=== PATIENT | female | born 1945 | race Caucasian/White ===

== ENCOUNTER 2018-07-05 02:22 | Outpatient (CLI) | payer MEDICARE, SELFPAY ==
--- NOTE | 2018-07-05 09:59 | DI.RAD_ITS ---
SYMPTOMS/DIAGNOSIS: LT KNEE PAIN LEFT KNEE: Comparison is made with . Narrowing and spurring is seen at the lateral femoral tibial joint. The joint space narrowing has increased when compared with the previous exam. There is slight widening of the medial femoral tibial joint space. Periarticular spurring and sclerosis appears unchanged. The patellofemoral joint is not well profiled. IMPRESSION: Moderate degenerative changes of the lateral femoral tibial joint.
== END 2018-07-05 02:42 ==
PROVIDERS: PCP Family Medicine; Visit Provider Family Medicine
DX: M25.562 Pain in left knee (principal); M17.12 Unilateral primary osteoarthritis, left knee
CPT/HCPCS: 73562

== ENCOUNTER → 2018-12-09 10:44 | Outpatient (BNVA) | payer MEDICARE, SELFPAY | PROVIDERS: PCP Family Medicine; Referring Provider Family Medicine; Visit Provider Student in an Organized Health Care Education/Training Program | DX: M17.12 Unilateral primary osteoarthritis, left knee (principal); M25.562 Pain in left knee; I10 Essential (primary) hypertension | CPT/HCPCS: 20610; 99202; 99213; J1040 ==

== ENCOUNTER → 2019-02-03 10:26 | Outpatient (BNVA) | payer MEDICARE, SELFPAY | PROVIDERS: PCP Family Medicine; Referring Provider Family Medicine; Visit Provider Student in an Organized Health Care Education/Training Program | DX: M25.562 Pain in left knee (principal); I10 Essential (primary) hypertension; M17.12 Unilateral primary osteoarthritis, left knee; Z98.890 Other specified postprocedural states | CPT/HCPCS: 99213 ==

== ENCOUNTER 2019-04-01 01:54 | Outpatient (CLI) | payer MEDICARE, SELFPAY ==
[2019-04-01 08:26] LABS: ALT 26 U/L (12-78); AST 14 U/L (15-37); Albumin 3.7 g/dL (3.4-5.0); Alkaline Phosphatase 75 U/L (46-116); Anion Gap 8.5 mmol/L (3-11); BUN 16 mg/dL (7-18); Bilirubin, Total 0.4 mg/dL (0.2-1.0); CO2 27.5 mmol/L (21.0-32.0); Calcium 8.8 mg/dL (8.5-10.1); Calculated LDL 191 mg/dL; Chloride 108 mmol/L (98-107); Cholesterol 276 mg/dL (50-200); Glucose 107 mg/dL (70-100); HDL Cholesterol 72 mg/dL (40-60); Potassium 4.3 mmol/L (3.5-5.1); Sodium 144 mmol/L (136-145); Total Protein 6.5 g/dL (6.4-8.2); Triglyceride 68 mg/dL (30-150)
== END 2019-04-01 02:14 ==
PROVIDERS: PCP Family Medicine; Visit Provider Family Medicine
DX: I10 Essential (primary) hypertension (principal)
CPT/HCPCS: 36415; 80053; 80061; 83721

== ENCOUNTER → 2019-04-14 10:26 | Outpatient (BNVA) | payer MEDICARE, SELFPAY | PROVIDERS: PCP Family Medicine; Referring Provider Family Medicine; Visit Provider Student in an Organized Health Care Education/Training Program | DX: M25.562 Pain in left knee; M17.12 Unilateral primary osteoarthritis, left knee; I10 Essential (primary) hypertension | CPT/HCPCS: 20610; 99213; J1040 ==

== ENCOUNTER 2019-05-13 00:48 | Outpatient (CLI) | payer MEDICARE, SELFPAY ==
--- NOTE | 2019-05-13 10:54 | DI.MAMMO_ITS ---
SYMPTOM/DIAGNOSIS: SCREENING Z12.31 MAMMOGRAM: 05/13 Mammograms were interpreted according to the usual protocol including computer analysis with CAD system, tomosynthesis and C view imaging. The breasts are heterogeneously dense. No dominant mass or clumped microcalcification identified in either breast. The current examination is compared with the previous examinations including April 2017 and there has been no gross interval change in appearance in comparison with the previous studies. CONCLUSION: No specific evidence of malignancy at this time. Routine screening examinations are suggested at yearly intervals in this age group according to the ACS/ACR guidelines. Category 1, breast density category C. MQSA ASSESSMENT OF FINDINGS: Negative. Category 1. Patient will receive a letter notifying them of these results. Bi-RADS category C. The breasts are heterogeneously dense, which may obscure small masses.
== END 2019-05-13 01:08 ==
PROVIDERS: PCP Family Medicine; Visit Provider Family Medicine
DX: Z12.31 Encounter for screening mammogram for malignant neoplasm of breast (principal)
CPT/HCPCS: 77063; 77067

== ENCOUNTER 2019-08-14 10:30 | Outpatient (CLI) | payer MEDICARE, SELFPAY ==
--- NOTE | 2019-08-14 10:05 | DI.RAD_ITS ---
EXAM: XR STANDING ALIGNMENT INDICATION: KNEE PAIN. COMPARISON: No exams were available for comparison TECHNIQUE: 2D digital imaging was performed. FINDINGS: There are mild degenerative changes of the hips bilaterally. Both knees show mild joint space narrowing and periarticular spurring in both the medial and lateral joint spaces. The left lower extremity measures 88.0 centimeters. The right lower extremity measures 88.1 centimet ers.
== END 2019-08-14 10:50 ==
PROVIDERS: PCP Family Medicine; Referring Provider Family Medicine; Visit Provider Student in an Organized Health Care Education/Training Program
DX: M25.561 Pain in right knee (principal); M25.562 Pain in left knee; M17.0 Bilateral primary osteoarthritis of knee; M16.0 Bilateral primary osteoarthritis of hip; I10 Essential (primary) hypertension
CPT/HCPCS: 99213; 77073

== ENCOUNTER 2019-09-26 08:58 | Outpatient (CLI) | payer MEDICARE, SELFPAY ==
--- NOTE | 2019-09-26 08:03 | HPE_ITS ---
Date of service: 09/26/19 Assessment and Plan Assessment and plan (1) Degenerative joint disease of left knee: Status: Chronic Assessment and plan: Left total knee replacement. Details of surgery were discussed with patient as well as risks and pertinent anatomy. All questions were answered. Qualifiers: Osteoarthritis type: primary Qualified Code(s): M17.12 - Unilateral primary osteoarthritis, left knee History of Present Illness History of Present Illness Chief Complaint: Left knee pain Narrative: Megan is a 74-year-old female who comes in today for a preop history and physical for a left total knee replacement. She has been dealing with left knee pain for many years, and states that at this point she is unable to fully straighten her leg out. She notices some clicks and pops in her knees whenever she is trying to do activities. She has an increase in her pain when she is going up or down stairs, or if she is on her feet for long periods of time. She has had x-rays taken in the office which does reveal some [id number] arthritis especially in the lateral compartment, but there is bone spurring throughout. She has tried injection therapy which did work for a while, but recently has become ineffective. She continues to have pain during activities despite injections. Dr. Hendrix at this time does offer a left total knee replacement, and she is anxious to proceed. Pertinent Surgical Information Megan has a history of HTN which is controlled well with medication. She also has a history of hyperlipidemia which is controlled with diet and exercise. Patient denies history of CVA, AR, angina, asthma, COPD, renal or liver disorders, hepatitis, bleeding disorders, diabetes, immune or thyroid disorders. No complications from anesthesia. Review of Systems Constitutional Constitutional: Denies fever(s) ENT Ears, Nose, Mouth, and Throat: Denies dizziness and Denies sore throat Cardiovascular Cardiovascular: Denies chest pain, Denies palpitations and Denies dyspnea Respiratory Respiratory: Denies cough and Denies dyspnea Gastrointestinal Gastrointestinal: Denies abdominal pain, Denies melena, Denies hematochezia, Denies diarrhea, Denies nausea and Denies vomiting Genitourinary Genitourinary: Denies hematuria and Denies dysuria Neurologic Neurologic: Denies dizziness Endocrine Endocrine: Denies palpitations [facility] Medical History Alcohol intake above recommended sensible limits (Resolved 08/14/13) 3plus daily Anxiety Anxiety (Chronic 05/21/14) Asthma 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) Rt cervical radiculapathy - neuro/chiro/PT Responded to tP injection to subscapularis TP C4-5 foraminal compromise Essential (primary) hypertension Essential hypertension (Chronic 08/13/13) Hemangioma (Chronic 01/07/04) 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 Upper respiratory infection (Resolved 01/12/15) Vitamin D deficiency (Chronic 07/10/08) Surgical History (Updated 09/26/19 @ 08:52 by KAIA Li) Colonoscopy - IV Sedation (05/16/16) H/O cataract removal with insertion of prosthetic lens (Resolved) 08/11/14 O.D. History of bilateral tubal ligation (Resolved) History of cataract removal with insertion of prosthetic lens (Inactive 08/11/14) B/L Status post tonsillectomy (Inactive) Social History (Updated 09/26/19 @ 08:52 by KAIA Li) Smoking/Tobacco Use Status: Former Tobacco Use Tobacco: How many years used: 45 Alcohol Intake: current Alcohol Intake frequency: 0-2 drinks per day Alcohol type: wine Drug use: Never Substance use type: does not use Caregiver/Support person: No Household members: spouse Housing: house Communication Needs: None Pets and animals: Yes Pets and animals: dog(s) Sexually active: No Do you think of yourself as: straight/heterosexual Current gender identity: female What is your relationship status?: How often do you talk on the phone with friends or family?: three or more times per week How often do you get together with friends or relatives?: decline to answer How often do you attend buddhism or adventist services?: decline to answer Do you belong to any clubs or organized social groups?: no Panel score (0-1 are the most socially isolated patients): 2 What type of physical activity do you participate in: none Briseida/Anabaptist: No preference Special briseida needs: No Seatbelt use: always Helmet use: Yes Helmet use: always Drive intox or ride w/intox personal driver: No Meds Home Medications and Allergies Home Medications Medication Instructions Recorded Confirmed Type loratadine 10 mg PO DAILY PRN #90 tab-cap 02/02/14 08/14/19 History ibuprofen [Advil] 400 mg PO PRN PRN 08/25/14 08/14/19 History cholecalciferol (vitamin D3) 125 5,000 unit PO DAILY 07/02/18 08/14/19 History mcg (5,000 unit) capsule fluticasone propionate 50 2 spray NS BID PRN #16 gm 07/02/18 08/14/19 Rx mcg/actuation nasal spray,suspension losartan 100 mg tablet 100 mg PO DAILY #90 tab 10/10/18 08/14/19 Rx metoprolol succinate 50 mg 50 mg PO DAILY #90 tab 03/03/19 08/14/19 Rx tablet,extended release 24 hr Allergies Allergy/AdvReac Type Severity Reaction Status Date / Time sulfamethoxazole Allergy Mild HIVES Unverified 08/14/19 10:01 trimethoprim Allergy Mild HIVES Unverified 08/14/19 10:01 lisinopril AdvReac Unknown COUGH Unverified 08/14/19 10:01 Exam [facility] Head: normocephalic and atraumatic General nose exam: no nasal discharge Throat: uvula midline and no uvular edema Other: soft palate rises symmetrically, no erythema Eyes Conjunctivae: conjunctivae normal Sclera: sclerae normal Pupils: PERRL Resp Effort & Inspection: normal respiratory effort Auscultation: clear to auscultation bilaterally and no wheezes Cardio Rate: regular rate Rhythm: regular rhythm Heart Sounds: S1 normal, S2 normal and no murmurs GI Palpation: soft, no hepatosplenomegaly and nontender Auscultation: normal bowel sounds
== END 2019-09-26 09:18 ==
PROVIDERS: PCP Family Medicine; Visit Provider Student in an Organized Health Care Education/Training Program
DX: M17.12 Unilateral primary osteoarthritis, left knee (principal); Z01.818 Encounter for other preprocedural examination; I10 Essential (primary) hypertension
CPT/HCPCS: NC

== ENCOUNTER 2019-09-26 09:46 | Outpatient (CLI) | payer MEDICARE, SELFPAY ==
[2019-09-26 10:22] LABS: HCT 40.3 % (36.0-46.0); HGB 12.8 g/dL (12.0-15.5); Mean Corp. HGB Concentration 31.8 g/dL (32.0-36.0); Mean Corpuscular Hemoglobin 27.9 pg (27.0-33.0); Mean Corpuscular Volume 87.8 fL (80-95); Mean Platelet Volume 10.2 fL (8.0-11.0); Platelet Count 281 x1000/uL (130-400); RBC 4.59 m/cumm (4.00-5.20); White Blood Cell Count 6.38 k/cumm (4.4-10.8)
[2019-09-26 11:02] LABS: Anion Gap 10.5 mmol/L (3-11); BUN 18 mg/dL (7-18); CO2 28.5 mmol/L (21.0-32.0); CREATININE 0.91 mg/dL (0.55-1.02); Calcium 9.1 mg/dL (8.5-10.1); Chloride 105 mmol/L (98-107); Glucose 104 mg/dL (74-106); Potassium 4.4 mmol/L (3.5-5.1); Sodium 144 mmol/L (136-145)
== END 2019-09-26 10:06 ==
PROVIDERS: PCP Family Medicine; Visit Provider Student in an Organized Health Care Education/Training Program
DX: M25.562 Pain in left knee (principal); M17.12 Unilateral primary osteoarthritis, left knee; Z01.818 Encounter for other preprocedural examination; Z01.812 Encounter for preprocedural laboratory examination
CPT/HCPCS: 36415; 80048; 85027

== ENCOUNTER 2019-10-07 07:56 | Inpatient (IN) | payer MEDICARE, SELFPAY ==
[2019-10-07] VITALS (10 sets, daily range): BP systolic 105–159; BP diastolic 67–99; PULSE 65–78; RESP 12–18; TEMP 36.5–36.7; O2SAT 92–98
[2019-10-07] MEDS: Lactated Ringers 1,000 ML 80 ML IV ×2 (08:39→14:28)
[2019-10-07] MEDS: Celecoxib 200 MG CAP 400 MG PO (08:39)
[2019-10-07] MEDS: Gabapentin 300 MG CAP PO ×2 (08:40→21:43)
[2019-10-07] MEDS: Acetaminophen 500 MG TAB 1000 MG PO ×3 (08:40→20:28)
[2019-10-07] MEDS: ceFAZolin 2 GM/50 ML BAG IVPB (10:35)
[2019-10-07] MEDS: Bupivacaine 0.5% Pres-Free 30 ML VIAL (11:04)
[2019-10-07] MEDS: Ketorolac 30 MG/ML VIAL (11:40)
[2019-10-07] MEDS: Bupivacaine 0.25% Pres-Free 30 ML VIAL (11:40)
[2019-10-07] MEDS: Normal Saline 50 ML (11:40)
--- NOTE | 2019-10-07 12:47 | W.PM.OP ---
Date of service: 10/07/19 Time of Service: 12:47 Operative Note Operative Note DATE OF PROCEDURE: 10/07/19 PRE-OP DIAGNOSIS: Left Knee Osteoarthritis POST-OP DIAGNOSIS: same PROCEDURE: Left Total Knee Replacement SURGEON: Yung Hendrix GROCERY STOCKER: Hilary Coates ANESTHESIA: regional and spinal ESTIMATED BLOOD LOSS: 150 PATHOLOGY: none sent TOURNIQUET TIME: 37 COMPLICATIONS: None Patient was transported to: PACU Patient's condition: stable Implants: 1. Depuy Attune Posterior Stabilized Femoral Component, Size 5 2. Depuy Attune Fixed Platform Tibial Component, Size 4 3. Depuy Attune 5x12mm Fixed, Stabilized Poly 4. Depuy Attune Patellar Component, Size 35mm Indications: I have seen Megan in clinic for symptoms of left knee arthritis, confirmed with radiographic findings. Megan has exhausted nonoperative methods and was having significant limitations in daily function and desired better function and less pain. I discussed the technical details of a knee replacement. I explained the risks of the procedure to include, but not limited to, bleeding, infection, pain, stiffness, fracture, damage to nerves and vessels, damage to muscles and tendons, loosening, need for repeat procedure, blood clot and cardiopulmonary demise. Despite these risks, Megan elected to proceed. Findings: There was significant signs of arthritis throughout the knee. There was complete loss of cartilage from the lateral femur and focal area of complete cartilage loss of the distal, medial femur. Some lateral femoral condyle hypoplasia. Procedure Description: Megan was greeted in the preoperative holding area where the correct side was identified and marked. The consent was reviewed with the patient and signed. The history and physical was updated. All questions were answered. Preoperative mediacations were administered: Acetaminophen 1000mg, Celebrex 400mg, and Gabapentin 300mg. An adductor canal block was then administered by the anesthesia team in the PACU. Megan was taken back to the operating room. A spinal anesthestic was then administered. The patient was placed into the supine position on the operating room table. A nonsterile tourniquet was placed high onto the leg but only used for cementing. Posts were placed for positioning during the procedure. All bony prominences were well padded. Prophylactic antibiotics in the form of Cefazolin were administered. 1g of Tranxemic Acid was given intravenously within 30 minutes of incision. The left leg was then prepped with Chloraprep and draped in a standard fashion with impervious stockinette and extremity drape. A second prep with Chloraprep was performed prior to placing Ioband. A timeout to confirm correct identity, side and site, procedure, allergies, anesthesia, and medical concerns was performed. With the knee in some flexion, a midline incision was made overlying the knee. Full thickness skin flaps were raised once the extensor mechanism was encountered. These were raised medially and laterally. Any bleeding was controlled with electrocautery. Once the extensor mechanism was fully exposed, a medial parapatellar arthrotomy was performed in a flexed position. All bleeding from the arthrotomy and the geniculate arteries was coagulated. A medial subperiosteal peel was performed with electrocautery to the midcoronal plane. The fat pad was removed while keeping the patellar tendon protected. The anterior distal femur synovium was removed for later visualization. The ACL and PCL were resected and the anterior horn of the lateral meniscus was transected. The knee was then flexed with the patella everted. Large osteophytes from the tibia were removed. Large osteophytes from the femur were removed. Using a step drill, and based on preoperative templating, the femoral canal was entered. This was done with a step drill without any difficulty. The intramedullary distal femoral cut guide was inserted, set to a 5 degree valgus cut and 9mm cut thickness. There was some hypoplasia of the lateral femoral condyle and any remnant cartilage of the medial femoral condyle was removed for appropriate thickness. The distal femoral cut guide was then held in position and pinned. With the soft tissues protected, the distal cut was performed. This was passed over a few times to ensure a planar cut. I then turned attention to the tibia. The extramedullary guide was placed onto the leg. The distal aspect was slid medial to adjust for position of center of ankle and stay in line with shaft of the tibia. Approximately 3-5 degrees of posterior slope was kept in the proximal cutting guide. The center of the guide was aligned with the PCL. The stylus was used to assess cut thickness. The medial side was set for a 8mm cut which corresponded to the same on the lateral side. This was then held in position and pinned into place with 2 additional pins and a cross pin for stability. The medial and lateral collateral ligaments were protected and the cut was performed. With this completed, it was assessed and noted to be of appropriate dimensions. The guide was removed. A spacer block was inserted and the knee was brought into extension. The 10mm spacer block provided full extension, without hyperextension and with stability of both the medial and lateral collateral ligaments was assessed. The pins from the femur and the tibia were then removed. The distal femur was then sized. The anterior stylus was placed onto the lateral ridge of the anterior femur. This indicated a size 5 femur. The external rotation of the guide was adjusted to 5 degrees to match the epicondylar axis, perpendicular to [place]?s line. The 4-in-1 cutting guide was the placed. The posterior medial femur cut was evaluated and appeared of good thickness. The spacer block was inserted underneath the cutting guide and stability was confirmed in 90 degrees of flexion. I moved the femur posteriorly 1.5mm to help tighten up the flexion space. An jl wing was used to confirm appropriate position of the anterior cut to avoid notching. This cutting guide was ensured to be flush on the cut surface and then pinned into place with headed pins. While protecting the soft tissues, quad tendon, and collateral ligaments, the anterior and posterior cuts were performed with a saw. The central two pins were removed and the posterior and anterior chamfers were cut next. The notch-cutting guide was placed. This was pinned to lateralize the femoral component as much as possible while keeping it flush on the cut surface. This was then pinned into position. A reciprocating saw was used to make the notch cut. A rasp smoothed the cut surfaces. A trial posterior stabilized femoral component was then inserted, impacted down to the cut surfaces, and the lug holes were drilled. A provisional trial tibial component was placed and the knee was brought through range of motion. The polyethylene was trialed until there was good flexion and extension with excellent stability to the medial and lateral collaterals. The patella was tracking without thumbs. The tibial cut surface was fully exposed. The medial and lateral menisci were removed. The tibia was then sized as a 4. The tibia had been previously marked during trialing to correspond to the center of the tibial component to help with rotation. The trial was aligned to this jose, approximately rotated to the medial 1/3rd of the tibial tubercle. The trial was pinned into place. The tibia was prepared with a reamer and a keel punch. The knee was then brought into extension and the patella was measured as 24mm. Using the patellar clamp and cut guide, this was resected to a flat surface with at least 13mm of thickness remaining. The size 35m patella fit the best. This was oriented and then clamped into position. The lugs were drilled. The trial components were removed. The final components, except for the polyethylene were opened on the back table. The periosteal and capsular tissues, especially posteriorly, around the knee were then systematically injected with a periarticular cocktail consisting of 50cc 0.25% Marcaine, 30mg Ketorolac, 20cc of Exparal and 50cc of injectable saline. The tourniquet was then inflated to 275mmHg. The knee was thoroughly irrigated with a pulse lavage and dried. On the back table, with the implants opened, the cement was mixed. 2 batches of antibiotic laden cement were prepared with vacuum assistance. After the cement was ready it was placed on to the back side of the tibial component. A small amount was placed onto the posterior flange of the femur. Cement was manual pressurized and impregnated into the cut surface of the tibia. The tibial component was then inserted into the cut surface and impacted into position. Excess cement was removed and the component was reimpacted. Again, excess cement was removed and our attention was then turned to the femur. The femoral cut surface was once again dried and cement was manually impacted into the cut surface. The femoral component was lined with the lug holes and impacted. Excess cement was removed. It was ensured to be down against the cut surface. The trial polyethylene was then inserted and the leg was brought out into full extension for the duration of the cement curing process, approximately 15min. Cement was lastly manually impacted into the cut surface of the patella and the patellar button was clamped into position and held. During this process attention was turned to the gutters of the knee and for all interfaces for any excess cement. While the cement was hardening, the knee was irrigated with Irrisept chlorhexadine solution. It was allowed to sit in the knee for 3 minutes. After the cement had finally cured, approximately 18min, the clamp was removed from the patella and the knee was taken through range of motion. A size 12mm polyethylene component provided the best range of motion and stability with less than 2mm gapping with medial and lateral stress and full extension without significant hyperextension. The patella was tracking with a no-thumbs technique. The trial poly was removed and once again the knee was checked for any loose, excess, or errant cement. The poly component was then inserted and impacted into position after cleaning and drying the tibial tray. The capsule was then reapproximated with a No. 1 Vicryl at multiple locations. The capsule was finally closed with a No. 2 Stratafix, barbed suture. The tourniquet was then released and the arthrotomy appeared watertight without significant bleeding. The second dosing of 1g TXA was started. Deep tissues were then reapproximated with 0 Vicryl and 2-0 Vicryl. The skin was closed with a running 3-0 Monocryl in a subcuticular fashion. This was reinforced with skin glue. A Mepilex silver dressing was applied along with a [id number] CARMEN wrap. A CryoCuff was applied. Megan was transferred to the hospital bed without difficulty an suffering no apparent complication. Megan has a good prognosis. Physical therapy will start today and without restrictions, weight-bearing as tolerated. Aspirin 81mg BID will be used for DVT prophylaxis.
--- NOTE | 2019-10-07 15:12 | NUR.NOTE ---
Nursing Note: Patient arrived from PACU via her bed and admitted to room 210 at 1323
[2019-10-07] MEDS: ceFAZolin 1 GM/50 ML BAG IVPB (15:49)
[2019-10-07] MEDS: Normal Saline Flush 10 ML SYR IV (15:51)
--- NOTE | 2019-10-07 16:53 | IN_ITS ---
Date of service: 10/07/19 Time of Service: 16:10 PT Notes Visit Reasons: (L) KNEE DJD Physical Therapy Inpatient Initial Evaluation Date: 10/07/2019 Referring Doctor: Yung Henrdix MD PT Orders: PT CONSULT: S/P ortho surgery Precautions: Fall. Standard. Activity as tolerated. Patient Profile/Admitting Diagnosis: Pt is a 74-year-old female presenting s/p L TKA, post-surgical day 0. 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 Upper respiratory infection (Resolved 01/12/15) Vitamin D deficiency (Chronic 07/10/08) Surgical History (Updated 09/26/19 @ 08:52 by KAIA Li) Colonoscopy - IV Sedation (05/16/16) H/O cataract removal with insertion of prosthetic lens (Resolved) 08/11/14 O.D. History of bilateral tubal ligation (Resolved) History of cataract removal with insertion of prosthetic lens (Inactive 08/11/14) B/L Status post tonsillectomy (Inactive) Social History/Home Situation: Pt lives at home with her in [place]. To enter the home through the garage the pt is required to negotiate 12 stairs from the basement to the main floor. Two steps to enter the home from the back door. Notes that her daughter will be staying with her for a week. Equipment Owned/DME: None Subjective: Pt reports that she is not experiencing any pain with lying in bed but is still feeling ?groggy? from the surgery. Objective: General Observation: Neal catheter in place, IV in L UE. Mental Status: alert and oriented x4 Pain: 0/10 at rest Vital Signs: Sitting: BP 135/85 mmHg, HR 81 bpm, SpO2 98% Standing: BP 136/94 mmHg, HR 80 bpm, SpO2 97% ROM: Right Upper Extremity: Shoulder Flexion WFL. Shoulder abduction WFL. Elbow flexion WFL. Wrist flexion WFL. Opening and closing of hand WFL. Left Upper Extremity: Shoulder Flexion WFL. Shoulder abduction WFL. Elbow flexion WFL. Wrist flexion WFL. Opening and closing of hand WFL. Right Lower Extremity: Hip flexion WFL. Hip abduction WFL. Knee flexion WFL. Ankle dorsiflexion WFL. Ankle plantarflexion WFL. Left Lower Extremity: Hip flexion WFL. Hip abduction WFL. Knee flexion 122 degrees. Knee extension -15 degrees. Able to perform 10 SLRs with minimal difficult. Ankle dorsiflexion WFL. Ankle plantarflexion WFL. Strength: Right Upper Extremity: Shoulder flexors 5/5. Shoulder abductors 5/5. Elbow flexors 5/5. Elbow extensors 5/5. Media Law Faculty Member strong. Left Upper Extremity: Shoulder flexors 5/5. Shoulder abductors 5/5. Elbow flexors 5/5. Elbow extensors 5/5. Media Law Faculty Member strong. Right Lower Extremity: Hip flexors 5/5. Hip abductors 5/5. Knee flexors 5/5. Knee extensors 5/5. Ankle dorsiflexors 5/5. Ankle plantarflexors 5/5. Left Lower Extremity: Hip flexors 4+/5. Hip abductors 5/5. Knee flexors 3-/5. Knee extensors 3-5. Ankle dorsiflexors 5/5. Ankle plantarflexors 5/5. Sensation: Intact as to pain and pressure on bilateral lower extremities. Bed Mobility/Transfers: Rolling Independent Supine to sit Independent Sit to supine Independent Sit to stand SBA (reports some lightheadedness with standing) Stand to sit SBA Bed to chair SBA Chair to bed SBA Gait: Pt was able to ambulate 70 feet + 5 feet WBAT using a two-wheeled walker. Step to pattern with decreased gray. Asymmetrical length and height of step. CGA by PT and wheelchair follow by student PT. Denies increased pain, however, did not wish to walk back to the room due to complaints of fatigue in the left knee. Balance: Static Sitting: Normal Dynamic Sitting: Normal Static Standing: Fair Dynamic Standing: Fair Special Tests: Mobility Limitations Standardized Measure [facility] AM-PAC 6 clicks Basic Mobility Inpatient Short Form: Raw Score: 22 CMS Score: 21% deficit Informed Consent/Education: Patient instructed in purpose of PT consult and plan of care. HEP including glute sets, quadricep sets, ankle pumps. Assessment: Pt is a 74-year-old female presenting s/p L TKA, post-surgical day 0. At the time of initial evaluation, the patient presented with impairment level findings and functional limitations as listed below. Pt would benefit from skilled physical therapy for safe return to home. Patient presents with clinical signs and symptoms consistent with curren t/admitting diagnoses that have resulted to mobility limitations, gait instability and generalized weakness as demonstrated by the following impairment level findings: 1. Decreased strength to L LE hip and knee muscle groups 2. Impaired standing balance 3. Impaired activity tolerance 4. Limitation of joint range of motion in left knee Impairments are contributing to the following functional limitations: 1. Increased dependence with transfers 2. Inability to safely ambulate without assistive device and physical assistance 3. Increase completion time for mobility ADL performance 4. Increased fall risk 5. Inability to negotiate steps alone safely Patient is assessed as a 71502 moderate complexity based on the following: History: Pt is a 74-year-old female presenting s/p L TKA, post-surgical day 0 with impairment level findings and functional limitations as listed above. Examination: Demonstrable impairment in strength, balance, and range of motion with underlying impairments and functional limitations as documented above Presentation: Evolving Decision Makin moderate complexity Goals: Goals X1 week 1. Sit-Stand independent 2. Stand-Sit independent 3. Bed-Chair independent 4. Chair-Bed independent 5. Independent gait on level surface with use of least restrictive device for at least 300 feet without report of pain nor dyspnea 6. Independent stair negotiation while holding onto bilateral rails for at least 15 steps without report of pain nor dyspnea 7. Independent with home exercise program 8. Good static and dynamic standing balance/tolerance Plan of Care/Treatment Plan: 1-2x/day, 7 days/week x 1 week. Plan of care has been reviewed with the LOCOMOTIVE OPERATOR HELPER providing the service under Physical Therapy direction. Initiate Physical Therapy intervention for strengthening, bed mobility, transfers, gait, stairs, balance training, use of assistive device. DISCHARGE RECOMMENDATIONS: Discharge to home when medically cleared. Recommended use of two-wheeled walker for safe ambulation in the home. TREATMENT CODE/TIME: 30226 x minutes beginning at 15:15 P.M. Thank you very much for this referral. Camila Davila, SPT Doctor of Physical Therapy Student [facility] Supervision provided by Gill Manley PT, DPT, CLT [facility] [place], [place]
[2019-10-07] MEDS: Aspirin E.C. 81 MG TABEC PO (20:27)
[2019-10-07] MEDS: Naproxen 500 MG TAB PO (20:27)
[2019-10-07] MEDS: Metoprolol CR 50 MG TABCR PO (21:43)
[2019-10-07] MEDS: Losartan 50 MG TAB 100 MG PO (21:44)
[2019-10-08] MEDS: ceFAZolin 1 GM/50 ML BAG IVPB ×2 (00:44→07:41)
[2019-10-08] MEDS: Lactated Ringers 1,000 ML 80 ML IV (03:10)
[2019-10-08 05:18] VITALS: BP 128/79; PULSE 65; RESP 16; TEMP 36.6; O2SAT 98
[2019-10-08 07:36] VITALS: BP 138/75; PULSE 63; RESP 18; TEMP 36.6; O2SAT 96
[2019-10-08] MEDS: Pantoprazole 40 MG TABCR PO (07:39)
[2019-10-08] MEDS: Normal Saline Flush 10 ML SYR IV (07:40)
--- NOTE | 2019-10-08 08:47 | INITIAL_ITS ---
- If Service Date Differs Date of service: 10/08/19 Time of Service: 08:47 Care Management Initial Assess REASON FOR HOSPITALIZATION:: DJD l knee PAST MEDICAL HISTORY/PAST SURGICAL HISTORY:: Medical History . Alcohol intake above recommended sensible limits (Resolved 08/14/13). 3plus daily. Anxiety. Anxiety (Chronic 05/21/14). Asthma. 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). Rt cervical radiculapathy. - neuro/chiro/PT. Responded to tP injection to subscapularis TP. C4-5 foraminal compromise. Essential (primary) hypertension. Essential hypertension (Chronic 08/13/13). Hemangioma (Chronic 01/07/04). MRI-cavernoma on Spinal Cord @ T1. T1 cord lesion: internal hemorhage or enlargement 2003. Seen 12/04/05 neurosurg--[facility] [place]. 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 Hyperlipidemia (Chronic). Lipitor makes her ill. 06/24 HDL 91 LDL 183. Osteopenia (Chronic 09/23/05). Dexa T -1.1/ -1.3/ -1.9. Polyp of colon (Chronic 02/21/11). T.A. Upper respiratory infection (Resolved 01/12/15). Vitamin D deficiency (Chronic 07/10/08). Surgical History (Updated 09/26/19 @ 08:52 by KAIA Li). Colonoscopy - IV Sedation (05/16/16). H/O cataract removal with insertion of prosthetic lens (Resolved). 08/11/14 O.D. History of bilateral tubal ligation (Resolved). History of cataract removal with insertion of prosthetic lens (Inactive 08/11/14). B/L. Status post tonsillectomy (Inactive) PREVIOUS FUNCTIONAL STATUS/SOCIAL/FAMILY SUPPORTS:: Megan lives in [place], [place] with her . She is independent at baseline and uses no community services or ambulatory devices. She will need a walker at discharge however. CURRENT FUNCTIONAL STATUS:: Megan was preparing to be discharged when CM met with her. She was pleasant and cooperative but was focused on obtaining a walker. CM called [facility] and confirmed they had a walker then faxed the order and appropriate paperwork to [facility]. ADVANCE DIRECTIVES:: [facility] Lisa Casillas [phone] CODE STATUS:: Full Code INSURANCE COVERAGE / FINANCIAL ISSUES:: Medicare. AARP PRIMARY CARE PHYSICIAN:: Tammy Maravilla POTENTIAL DISCHARGE NEEDS:: Follow up with surgeon and discharge plan of care PATIENT/FAMILY EDUCATION NEEDS:: Discharge plan, limitations, follow up plan, Ask Me Three. ANTICIPATED BARRIERS TO DISCHARGE:: none identified TRANSPORTATION:: via private vehicle with family PLAN:: Megan will be discharged home with no new services. She will transport with her via private vehicle and follow up with her surgeon and discharge plan of care.Megan will obtain a walker from [facility].
[2019-10-08] MEDS: Cholecalciferol (Vitamin D3) 1,000 UNIT TAB 5000 UNITS PO (09:24)
[2019-10-08] MEDS: Acetaminophen 500 MG TAB 1000 MG PO (09:25)
[2019-10-08] MEDS: Naproxen 500 MG TAB PO (09:25)
[2019-10-08] MEDS: Aspirin E.C. 81 MG TABEC PO (09:28)
--- NOTE | 2019-10-08 09:50 | W.PM.DS.N ---
Date of service: 10/08/19 Time of Service: 09:50 DS: Diagnosis Discharge Diagnosis (1) Degenerative joint disease of left knee: Status: Chronic Discharge Plan Disposition Patient Disposition: HOME Condition: Good Discharge Details Reason For Visit: (L) KNEE DJD Admit Date/Time: 10/07/19 07:56 Admit Provider: Yung Hendrix Attending Provider: Yung Hendrix Primary Care Provider: Tammy Maravilla [facility] Course Hospital Course: Patient was admitted to the medical/surgical floor following the procedure. It was tolerated well without any notable medical, surgical, or anesthetic complications. Mobilization began postoperatively. The oneal catheter was removed and voiding spontaneously. Vitals were stable. Physical therapy worked with the patient and was cleared for discharge home. No acute medical issues. Home Meds and New Rx's Prescriptions: New naproxen 500 mg Tablet 500 mg PO BID Qty: 60 RF: 0 aspirin 81 mg tablet,delayed release (DR/EC) 81 mg PO BID Qty: 60 RF: 0 acetaminophen 500 mg tablet 1,000 mg PO Q8H PRN (Reason: pain) Qty: 90 RF: 3 pantoprazole 40 mg tablet,delayed release (DR/EC) 40 mg PO DAILY Qty: 30 RF: 0 oxycodone 5 mg tablet 2.5 - 5 mg PO Q4H Qty: 10 RF: 0 Continued fluticasone propionate 50 mcg/actuation spray,suspension 2 spray NS BID PRN (Reason: nasal congestion) Qty: 16 RF: 4 loratadine 10 MG tablet,disintegrating 10 mg PO DAILY PRNQty: 90 RF: 0 metoprolol succinate 50 mg tablet extended release 24 hr 50 mg PO HS RF: 0 losartan 100 mg tablet 100 mg PO HS RF: 0 Discontinued ibuprofen [Advil] 200 MG tablet 400 mg PO PRN PRN (Reason: Pain) RF: 0 No Action cholecalciferol (vitamin D3) 5,000 unit capsule 5,000 unit PO DAILY RF: 0 Discharge Instructions Additional Instructions: Dr. Hendrix?s Total Knee Discharge Instructions Activity: The most important activity is to walk. You should try to take short walks a few times a day. It is important that when resting you work on keeping the knee straight. Avoid putting a pillow behind the knee as this will encourage flexion. Work on range of motion exercises as provided by Physical Therapy. - Start outpatient physical therapy within 2 weeks. - You should wear the COSTA hose on both legs for 2 weeks. Dressing: Keep the surgical dressing in place for at least one week. After the first week it may be removed and replace with light gauze and tape or nothing. It may get wet after 3 days but avoid soaking the dressing. If it gets wet, just lightly pat dry. Medications: - You should take Tylenol (1000mg every 8 hours) and anti-inflammatory Naproxen (500mg twice a day) as your primary pain control medications - You have been prescribed a stronger pain medication Oxycodone for breakthrough pain, take as needed as prescribed. - You have also been prescribed a stomach acid reduction agent Pantoprozole to help reduce stomach acid and reflux. - You will be taking Aspirin 81mg twice a day for DVT prevention unless instructed otherwise. - If you have constipation you should take Colace or Miralax (both [id number]). It takes most people 3-4 days to have a bowel movement. Follow-up: 2 weeks Referrals: Yung Hendrix MD [ [facility] STAFF PHYSICIAN] - Activity:: Activity as Tolerated Equipment/Supplies:: Walker Diet:: As Tolerated Discharge Orders Discharge Orders: Discharge Order (Routine); Ordered 10/08/19 Ordered By: Yung Hendrix DS: Summary Status at Discharge Functional status at discharge: uses cane/walker Overall status at discharge: patient is progressing back to baseline Mental Status: mental status grossly normal Speech and Movement: speech and movement normal Mood: congruent mood Affect: normal affect Exam Psych Mental Status: mental status grossly normal Speech and Movement: speech and movement normal Mood: congruent mood Affect: normal affect DS: Data Vitals/I&O Vitals and I&O: Vital Signs Temperature 36.6 C 10/08/19 07:36 Temperature Source Tympanic 10/08/19 07:36 Pulse 63 10/08/19 07:36 Pulse Rhythm Regular 10/08/19 07:30 Respiratory Rate 18 10/08/19 07:36 Respiratory Effort Non-Labored 10/08/19 07:30 Respiratory Depth Normal 10/08/19 07:30 Respiratory Pattern Normal 10/08/19 07:30 Blood Pressure 138/75 10/08/19 07:36 Pulse Oximetry 96 10/08/19 07:36 Respiratory End-tidal CO2 34 10/07/19 13:09 Oxygen Delivery Method Room Air 10/08/19 07:36 Oxygen Flow Rate 0 10/08/19 07:36 Pain Level 6 10/08/19 09:25 Intake & Output 10/07/19 10/07/19 10/08/19 11:59 23:59 11:59 Intake Total 110 / 7321.760 9010.000 / 8649.977 7527.666 / 1014.666 Output Total 150 / 950 800 / 950 1100 / 1100 Balance -40 / 222.000 262.000 / 222.000 -85.334 / -85.334 Weight 72.1 kg Intake: IV 110 / 1524.497 4087.000 / 2829.290 5078.666 / 1014.666 Output: Urine 800 / 800 1100 / 1100 Estimated Blood Loss 150 / 150 Other: Urine Color Yellow Yellow Yellow Urine Appearance Clear Clear Clear Emesis Description None PFSH Medical History Alcohol intake above recommended sensible limits (Resolved 08/14/13) 3plus daily Anxiety Anxiety (Chronic 05/21/14) Asthma pt. 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 Upper respiratory infection (Resolved 01/12/15) Vitamin D deficiency (Chronic 07/10/08) Surgical History Colonoscopy - IV Sedation (05/16/16) H/O cataract removal with insertion of prosthetic lens (Resolved) 08/11/14 O.D. History of bilateral tubal ligation (Resolved) History of cataract removal with insertion of prosthetic lens (Inactive 08/11/14) B/L Status post tonsillectomy (Inactive) Family History Mother , 87 Dementia Stroke Father , 68 Essential hypertension Heart disease Hyperlipidemia Maternal Grandfather No problems noted. Paternal Grandfather Asthma Maternal Grandmother , 80s Cancer Paternal Grandmother Heart disease Brother Essential hypertension Hyperlipidemia Sister No problems noted. Sister No problems noted. Daughter , 29 Hodgkins lymphoma Daughter No problems noted. Social History Smoking/Tobacco Use Status: Former Tobacco Use Tobacco: How many years used: 45 Alcohol Intake: current Alcohol Intake frequency: 0-2 drinks per day Alcohol type: wine Details: 2-3 glasses of wine nightly, recently quit Drug use: Never Substance use type: does not use Caregiver/Support person: No Household members: spouse Housing: house Communication Needs: None Pets and animals: Yes Pets and animals: dog(s) Sexually active: No Do you think of yourself as: straight/heterosexual Current gender identity: female What is your relationship status?: How often do you talk on the phone with friends or family?: three or more times per week How often do you get together with friends or relatives?: decline to answer How often do you attend roman catholic or yarsanism services?: decline to answer Do you belong to any clubs or organized social groups?: no Panel score (0-1 are the most socially isolated patients): 2 What type of physical activity do you participate in: none Briseida/Spiritism: No preference Special briseida needs: No Seatbelt use: always Helmet use: Yes Helmet use: always Drive intox or ride w/intox interstate bus driver: No
--- NOTE | 2019-10-08 10:31 | PT.INTREAT ---
Date of service: 10/08/19 Time of Service: 10:31 PT Notes Visit Reasons: (L) KNEE DJD Inpatient Physical Therapy Treatment Note [facility] Date: 10/08/2019 PRECAUTIONS: Fall, WBAT L SUBJECTIVE: Megan is agreeable to participating in PT. She states that she is going home today. OBJECTIVE: PAIN: Patient c/o L knee pain with all activity BED MOBILITY/TRANSFERS Sit-stand: S with cueing for safety Stand-sit: S with cueing for safety GAIT Assistive Device: FWW Weight bearing: WBAT L Assist: SBA Distance: 75' x2 Deviation: Step-through gait pattern, cues for continuous FWW advancement, L knee pain THEREX: Patient completed a LE strengthening program, in a seated position, as per flow sheet. Cryocuff for L knee at end of session. STAIRS: Up/down 9x4 and 6x6 using B rails step-to with supervision; up/down 3x4 using 1 rail/SPC and a step-to pattern with supervision and minimal cueing for sequence. ASSESSMENT: Patient tolerated session with complaint L knee pain with activity. She was able to tolerate a progression in gait distance with FWW support and SBA. She would benefit from continued gait and transfer training for improved mobility. PLAN: As per primary PT TREATMENT CODE/TIME: 30 minutes; 06499, [id number]
--- NOTE | 2019-10-08 15:36 | CHAPLAIN ---
Megan was very pleasant and told me about her knee surgery. She expects to be discharged later today and was waiting to here about getting a walker through Care Management. Megan' daughter was with her. I explained my role and offered support.
--- NOTE | 2019-10-09 17:07 | PT.INDS ---
Date of service: 10/09/19 Time of Service: 17:07 PT Notes Visit Reasons: (L) KNEE DJD Inpatient Physical Therapy Discharge Summary Dates: 10/09/2019 Dates of Service: 10/07/2019 and 10/08/2019 This is a clinical summary of care provided on the duration of dates listed above. No charge was made in the completion of this documentation. Referring Doctor: Yung Hendrix MD PT Orders: PT CONSULT: S/P ortho surgery Precautions: Fall. Standard. Activity as tolerated. Patient Profile/Admitting Diagnosis: Pt is a 74-year-old female presenting s/p L TKA, post-surgical day 1 on day of discharge. 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 Upper respiratory infection (Resolved 01/12/15) Vitamin D deficiency (Chronic 07/10/08) Surgical History (Updated 09/26/19 @ 08:52 by KAIA Li) Colonoscopy - IV Sedation (05/16/16) H/O cataract removal with insertion of prosthetic lens (Resolved) 08/11/14 O.D. History of bilateral tubal ligation (Resolved) History of cataract removal with insertion of prosthetic lens (Inactive 08/11/14) B/L Status post tonsillectomy (Inactive) Social History/Home Situation: Pt lives at home with her in [place]. To enter the home through the garage the pt is required to negotiate 12 stairs from the basement to the main floor. Two steps to enter the home from the back door. Notes that her daughter will be staying with her for a week. Equipment Owned/DME: None Subjective: NT Objective: General Observation: NT Mental Status: NT Pain: NT ROM: Right Upper Extremity: Shoulder Flexion WFL. Shoulder abduction WFL. Elbow flexion WFL. Wrist flexion WFL. Opening and closing of hand WFL. Left Upper Extremity: Shoulder Flexion WFL. Shoulder abduction WFL. Elbow flexion WFL. Wrist flexion WFL. Opening and closing of hand WFL. Right Lower Extremity: Hip flexion WFL. Hip abduction WFL. Knee flexion WFL. Ankle dorsiflexion WFL. Ankle plantarflexion WFL. Left Lower Extremity: Hip flexion WFL. Hip abduction WFL. Knee flexion 122 degrees. Knee extension -15 degrees. Able to perform 10 SLRs with minimal difficult. Ankle dorsiflexion WFL. Ankle plantarflexion WFL. Strength: Right Upper Extremity: Shoulder flexors 5/5. Shoulder abductors 5/5. Elbow flexors 5/5. Elbow extensors 5/5. Visual C Developer strong. Left Upper Extremity: Shoulder flexors 5/5. Shoulder abductors 5/5. Elbow flexors 5/5. Elbow extensors 5/5. Visual C Developer strong. Right Lower Extremity: Hip flexors 5/5. Hip abductors 5/5. Knee flexors 5/5. Knee extensors 5/5. Ankle dorsiflexors 5/5. Ankle plantarflexors 5/5. Left Lower Extremity: Hip flexors 4+/5. Hip abductors 5/5. Knee flexors 3-/5. Knee extensors 3-5. Ankle dorsiflexors 5/5. Ankle plantarflexors 5/5. Sensation: Intact as to pain and pressure on bilateral lower extremities. Bed Mobility/Transfers: Rolling Independent Supine to sit Independent Sit to supine Independent Sit to stand supervision Stand to sit supervision Bed to chair supervision Chair to bed supervision Gait: Pt was able to ambulate 75 feet x2 WBAT using a two-wheeled walker with SBA. Step to pattern with decreased gray. Asymmetrical length and height of step. Denies increased pain, however, did not wish to walk back to the room due to complaints of fatigue in the left knee. Balance: Static Sitting: Normal Dynamic Sitting: Normal Static Standing: Fair Dynamic Standing: Fair Assessment: Pt is a 74-year-old female presenting s/p L TKA, post-surgical day 1 on day of discharge. At the time of initial evaluation, the patient presented with impairment level findings and functional limitations as listed below. Pt would benefit from skilled physical therapy for safe return to home. Patient continues to present with clinical signs and symptoms consistent with current/admitting diagnoses that have resulted to mobility limitations, gait instability and generalized weakness as demonstrated by the following impairment level findings: 1. Decreased strength to L LE hip and knee muscle groups 2. Impaired standing balance 3. Impaired activity tolerance 4. Limitation of joint range of motion in left knee Impairments continue to contribute to the following functional limitations: 1. Increased dependence with transfers 2. Inability to safely ambulate without assistive device and physical assistance 3. Increase completion time for mobility ADL performance 4. Increased fall risk 5. Inability to negotiate steps alone safely Goals: Goals X1 week 1. Sit-Stand independent NOT MET 2. Stand-Sit independent NOT MET 3. Bed-Chair independent NOT MET 4. Chair-Bed independent NOT MET 5. Independent gait on level surface with use of least restrictive device for at least 300 feet without report of pain nor dyspnea NOT MET 6. Independent stair negotiation while holding onto bilateral rails for at least 15 steps without report of pain nor dyspnea NOT MET 7. Independent with home exercise program NOT MET 8. Good static and dynamic standing balance/tolerance NOT MET DISCHARGE RECOMMENDATIONS: Discharge to home when medically cleared. Recommended use of two-wheeled walker for safe ambulation in the home. TREATMENT CODE/TIME: ND Thank you very much for this referral. Gill Manley PT, DPT, CLT [facility] [place], [place]
== END 2019-10-08 12:12 | disposition home or self-care (01) | DRG 470 ==
LOC: PDS 07:56 → MS 13:23
PROVIDERS: Admitting Provider Student in an Organized Health Care Education/Training Program; PCP Family Medicine; Visit Provider Student in an Organized Health Care Education/Training Program
PROC: 0SRD0J9 Replacement of Left Knee Joint with Synthetic Substitute, Cemented, Open Approach (ICD-10-PCS; CPT 27447; principal; 2019-10-07 11:15)
DX: M17.12 Unilateral primary osteoarthritis, left knee (principal); M25.562 Pain in left knee; Z96.652 Presence of left artificial knee joint; I10 Essential (primary) hypertension; E78.5 Hyperlipidemia, unspecified; J45.909 Unspecified asthma, uncomplicated; M85.80 Other specified disorders of bone density and structure, unspecified site; Z87.891 Personal history of nicotine dependence
CPT/HCPCS: 27447; 76942; 97110; 97162; 97530; NC; J0690; J1100; J1885; J2405

== ENCOUNTER 2019-10-23 10:31 | Outpatient (CLI) | payer MEDICARE, SELFPAY ==
--- NOTE | 2019-10-23 10:50 | DI.RAD_ITS ---
EXAM: XR STANDING ALIGNMENT CLINICAL HISTORY: 1st post op COMPARISON: XR STANDING ALIGNMENT from 08/14/2019 FINDINGS: AP standing alignment views were obtained. There are mild degenerative changes of both hips. There is a total knee joint replacement in position on left. There are degenerative changes involving the right knee with mild to moderate narrowing of the lateral tibiofemoral cartilaginous joint space and associated subchondral sclerosis of the adjacent bones.
--- NOTE | 2019-10-23 10:50 | DI.RAD_ITS ---
EXAM: XR KNEE LT 1V CLINICAL HISTORY: 1st post op TECHNIQUE: COMPARISON: LEFT KNEE 3 VIEW COMPLETE from 07/14/2015 FINDINGS: Single lateral view of the knee was obtained. There is a total knee joint replacement in position. Components appear well seated on this view. IMPRESSION:
== END 2019-10-23 10:51 ==
PROVIDERS: PCP Family Medicine; Referring Provider Family Medicine; Visit Provider Student in an Organized Health Care Education/Training Program
DX: M16.0 Bilateral primary osteoarthritis of hip (principal); Z96.652 Presence of left artificial knee joint; Z47.1 Aftercare following joint replacement surgery; M17.11 Unilateral primary osteoarthritis, right knee
CPT/HCPCS: 73560; 77073

== ENCOUNTER → 2019-11-27 10:28 | Outpatient (BNVA) | payer MEDICARE, SELFPAY | PROVIDERS: PCP Family Medicine; Referring Provider Family Medicine; Visit Provider Student in an Organized Health Care Education/Training Program | DX: Z96.652 Presence of left artificial knee joint (principal); Z47.1 Aftercare following joint replacement surgery; M25.511 Pain in right shoulder | CPT/HCPCS: 20610; 99213; J1040 ==

== ENCOUNTER → 2020-02-06 11:05 | Outpatient (BNVA) | payer MEDICARE, SELFPAY | PROVIDERS: PCP Family Medicine; Referring Provider Family Medicine; Visit Provider Student in an Organized Health Care Education/Training Program | DX: Z96.652 Presence of left artificial knee joint (principal); M25.511 Pain in right shoulder; M67.911 Unspecified disorder of synovium and tendon, right shoulder; I10 Essential (primary) hypertension | CPT/HCPCS: 99213 ==

== ENCOUNTER 2021-01-17 13:39 | Outpatient (CLI) | payer MEDICARE, SELFPAY ==
--- NOTE | 2021-01-17 10:45 | DI.RAD_ITS ---
EXAM: XR KNEE LT 2V AP,LAT CLINICAL HISTORY: annual f/u L TKA. TECHNIQUE: 2D digital imaging was performed. COMPARISON: CR XR KNEE LT 1V from 10/23/2019 FINDINGS: Normal position alignment of components of the prosthesis, appearing stable foreign 30 20. No fractu re or loosening evident. IMPRESSION: DATA REPOSITORY: RADIATION DOSE DELIVERED:
== END 2021-01-17 13:40 | disposition home or self-care (01) ==
LOC: DIORS 13:40
PROVIDERS: PCP Family Medicine; Referring Provider Family Medicine; Visit Provider Student in an Organized Health Care Education/Training Program
DX: Z47.1 Aftercare following joint replacement surgery (principal); Z96.652 Presence of left artificial knee joint
CPT/HCPCS: 99213; 73560

== ENCOUNTER 2021-01-26 04:40 | Outpatient (CLI) | payer MEDICARE, SELFPAY ==
[2021-01-26 13:56] LABS: ALT 32 U/L (14-59); AST 19 U/L (15-37); Albumin 4.1 g/dL (3.4-5.0); Alkaline Phosphatase 73 U/L (46-116); Anion Gap 6.7 mmol/L (3-11); BUN 16 mg/dL (7-18); Bilirubin, Total 0.5 mg/dL (0.2-1.0); CO2 30.3 mmol/L (21.0-32.0); CREATININE 0.9 mg/dL (0.55-1.02); Calcium 8.9 mg/dL (8.5-10.1); Chloride 106 mmol/L (98-107); Glucose 115 mg/dL (74-106); Potassium 4.5 mmol/L (3.5-5.1); Sodium 143 mmol/L (136-145); TSH (W/Ref FT4) 1.33 uIU/mL (0.36-3.74); Total Protein 6.9 g/dL (6.4-8.2)
[2021-01-27 04:40] LABS: Vitamin D 25 Total 38.9 ng/mL (30-100)
== END 2021-01-26 04:41 | disposition home or self-care (01) ==
LOC: LBO 04:41
PROVIDERS: PCP Family Medicine; Visit Provider Family Medicine
DX: I10 Essential (primary) hypertension (principal); F41.9 Anxiety disorder, unspecified; E55.9 Vitamin D deficiency, unspecified; M85.88 Other specified disorders of bone density and structure, other site
CPT/HCPCS: 36415; 80053; 82306; 84443

== ENCOUNTER 2022-05-22 04:30 | Outpatient (CLI) | payer MEDICARE, SELFPAY ==
[2022-05-22 12:30] LABS: ALT 29 U/L (14-59); AST 17 U/L (15-37); Albumin 3.8 g/dL (3.4-5.0); Alkaline Phosphatase 64 U/L (46-116); Anion Gap 7.9 mmol/L (3-11); BUN 15 mg/dL (7-18); Bilirubin, Total 0.6 mg/dL (0.2-1.0); CO2 31.1 mmol/L (21.0-32.0); Chloride 104 mmol/L (98-107); Estimated GFR 53.62 (mL/min/1.73m2); Glucose 100 mg/dL (74-106); Potassium 3.4 mmol/L (3.5-5.1); Sodium 143 mmol/L (136-145); Total Protein 7.2 g/dL (6.4-8.2)
== END 2022-05-22 04:31 | disposition home or self-care (01) ==
LOC: LBO 04:31
PROVIDERS: PCP Family Medicine; Visit Provider Family Medicine
DX: E78.5 Hyperlipidemia, unspecified (principal); I10 Essential (primary) hypertension
CPT/HCPCS: 36415; 80053

== ENCOUNTER → 2022-07-05 01:53 | Outpatient (CLI) | payer MEDICARE, SELFPAY ==
--- NOTE | 2022-07-05 07:00 | DI.RAD_ITS ---
Exam(s) XR KNEE RT 3V AP,LAT,MELANIA EXAM: XR KNEE RT 3V AP,LAT,MELANIA CLINICAL HISTORY: r knee pain.M25.561 TECHNIQUE: COMPARISON: CR XR KNEE LT 2V AP,LAT from 01/17/2021 FINDINGS: Three views were obtained. There is mild narrowing of the cartilaginous joint spaces of medial and l ateral tibiofemoral joints. There is subchondral sclerosis at the lateral tibiofemoral joint. Mild marginal osteophytes are noted involving these joints. No other significant bony abnormality seen. 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 RADIATION DOSE DELIVERED: Total DLP
== END ==
PROVIDERS: PCP Family Medicine; Visit Provider Family Medicine
DX: M17.11 Unilateral primary osteoarthritis, right knee (principal)
CPT/HCPCS: 73562

== ENCOUNTER → 2023-02-26 11:00 | Outpatient (BNVA) | payer MEDICARE, SELFPAY | PROVIDERS: PCP Family Medicine; Referring Provider Family Medicine | DX: M17.11 Unilateral primary osteoarthritis, right knee (principal) | CPT/HCPCS: 20610; J1040 ==

== ENCOUNTER 2023-06-28 05:00 | Outpatient (CLI) | payer MEDICARE, SELFPAY ==
[2023-06-28 14:47] LABS: ALT 23 U/L (14-59); AST 18 U/L (15-37); Albumin 3.9 g/dL (3.4-5.0); Alkaline Phosphatase 74 U/L (46-116); Anion Gap 7.1 mmol/L (3-11); BUN 14 mg/dL (7-18); Bilirubin, Total 0.5 mg/dL (0.2-1.0); CO2 29.9 mmol/L (21.0-32.0); CREATININE 0.9 mg/dL (0.55-1.02); Calcium 9.3 mg/dL (8.5-10.1); Chloride 102 mmol/L (98-107); Estimated GFR 65.03 (mL/min/1.73m2); Glucose 103 mg/dL (74-106); Potassium 3.5 mmol/L (3.5-5.1); Sodium 139 mmol/L (136-145); Total Protein 7.1 g/dL (6.4-8.2)
== END 2023-06-28 05:01 | disposition home or self-care (01) ==
LOC: LBO 05:01
PROVIDERS: PCP Family Medicine; Visit Provider Family Medicine
DX: I10 Essential (primary) hypertension (principal)
CPT/HCPCS: 36415; 80053

== ENCOUNTER 2024-05-19 22:27 | Outpatient (CLI) | payer MEDICARE, SELFPAY ==
--- NOTE | 2024-05-19 14:30 | DI.RAD_ITS ---
Exam(s) XR KNEE RT 3V AP,LAT,MELANIA EXAM: XR KNEE RT 3V AP,LAT,MELANIA CLINICAL HISTORY: eval R knee OA. TECHNIQUE: 2D digital imaging was performed. Three views. COMPARISON: CR XR KNEE RT 3V AP,LAT,MELANIA from 07/05/2022 FINDINGS: BONES: No acute fracture is present. No bony destructive lesion is seen. JOINTS: Narrowing of the lateral femoral tibial joint space and periarticular spurring. Medial femor al tibial joint space is maintained. A joint effusion is seen. SOFT TISSUE: Venous varicosities in the medial upper calf. IMPRESSION: Joint effusion. Degenerative changes, greatest at the lateral femoral tibial joint. DATA REPOSITORY: RADIATION DOSE DELIVERED:
== END 2024-05-19 22:28 | disposition home or self-care (01) ==
LOC: DIORS 22:28
PROVIDERS: PCP Family Medicine; Referring Provider Family Medicine; Visit Provider Student in an Organized Health Care Education/Training Program
DX: M17.11 Unilateral primary osteoarthritis, right knee (principal)
CPT/HCPCS: 73562; 99214

== ENCOUNTER 2024-06-30 02:50 | Outpatient (CLI) | payer MEDICARE, SELFPAY ==
[2024-06-30 16:53] LABS: ALT 20 U/L (14-59); AST 16 U/L (15-37); Alkaline Phosphatase 78 U/L (46-116); Anion Gap 9.3 mmol/L (3-11); BUN 14 mg/dL (7-18); Bilirubin, Total 0.55 mg/dL (0.2-1.0); CO2 29.7 mmol/L (21.0-32.0); CREATININE 0.9 mg/dL (0.55-1.02); Calcium 9.6 mg/dL (8.5-10.1); Chloride 106 mmol/L (98-107); Estimated GFR 64.63 (mL/min/1.73m2); Glucose 96 mg/dL (74-106); Potassium 3.9 mmol/L (3.5-5.1); Sodium 145 mmol/L (136-145); Total Protein 7.2 g/dL (6.4-8.2)
== END 2024-06-30 02:51 | disposition home or self-care (01) ==
LOC: LBO 02:51
PROVIDERS: PCP Family Medicine; Visit Provider Student in an Organized Health Care Education/Training Program
DX: I10 Essential (primary) hypertension (principal)
CPT/HCPCS: 36415; 80053; 99024

== ENCOUNTER 2024-06-30 16:14 | Outpatient (CLI) | payer MEDICARE, SELFPAY ==
--- NOTE | 2024-06-30 14:45 | DI.RAD_ITS ---
Exam(s) XR STANDING ALIGNMENT EXAM: XR STANDING ALIGNMENT CLINICAL HISTORY: TKR Planning. TECHNIQUE: 2D digital imaging was performed. Standing AP views were performed from the pelvis throu gh the ankles. COMPARISON: CR XR STANDING ALIGNMENT from 10/23/2019 CR XR KNEE RT 3V AP,LAT,MELANIA from 05/19/2024 FINDINGS: BONES: No acute fracture is present. No bony destructive lesion is seen. Leg length discrepancy: Mild overall leg length discrepancy. JOINTS: Knees: Degenerative changes of the lateral femoral tibial joint space. No change in appearan ce left knee prosthesis. The ankle joints are unremarkable. The hip joints are unremarkable. SOFT TISSUE: Venous varicosities in the medial right lower leg. IMPRESSION: Degenerative changes of the lateral femoral tibial joint of the right knee. No change in appearance of left knee prosthesis.. Mild overall leg length discrepancy. DATA REPOSITORY: RADIATION DOSE DELIVERED:
== END 2024-06-30 16:15 | disposition home or self-care (01) ==
LOC: DIORS 16:15
PROVIDERS: PCP Family Medicine; Visit Provider Physician Assistant
DX: M17.11 Unilateral primary osteoarthritis, right knee (principal); Z01.818 Encounter for other preprocedural examination
CPT/HCPCS: 36415; 80053; 99024; 77073

== ENCOUNTER 2024-07-09 07:09 | Day surgery (SDC) | payer MEDICARE, SELFPAY ==
[2024-07-09] VITALS (14 sets, daily range): BP systolic 139–188; BP diastolic 69–92; PULSE 59–68; RESP 12–22; TEMP 35.6–36.7; O2SAT 92–99; BMI 28.8
--- NOTE | 2024-07-09 07:21 | PDOC.DSDIS_ITS ---
Date of service: 07/09/24 Time of Service: 07:21 Discharge Plan Disposition Patient Disposition: Home Condition: Good Discharge Details Reason For Visit: R TKR Attending Provider: Yung Hendrix Primary Care Provider: Tammy Maravilla Home Meds and New Rx's Prescriptions: New acetaminophen 500 mg tablet 1,000 mg PO TID Qty: 90 3RF aspirin 81 mg tablet,delayed release (DR/EC) 81 mg PO BID Qty: 60 0RF pantoprazole 40 mg tablet,delayed release (DR/EC) 40 mg PO DAILY Qty: 30 0RF gabapentin 300 mg capsule 300 mg PO QHS Qty: 14 0RF oxycodone 5 mg tablet 5 mg PO Q4H MDD 6 tabs PRN (Reason: pain) Qty: 20 0RF naproxen 500 mg tablet 500 mg PO BID Qty: 60 2RF dexamethasone 4 mg tablet 4 mg PO DAILY Qty: 2 0RF Continued hydrochlorothiazide 12.5 mg tablet 12.5 mg PO QAM Qty: 90 4RF cholecalciferol (vitamin D3) 5,000 unit capsule 5,000 unit PO DAILY fluticasone propionate 50 mcg/actuation spray,suspension 2 spray NS BID PRN (Reason: nasal congestion) Qty: 16 4RF losartan 50 mg tablet 50 mg PO DAILY Qty: 90 4RF escitalopram oxalate 10 mg tablet 10 mg PO DAILY Qty: 90 4RF loratadine 10 MG tablet,disintegrating 10 mg PO DAILY PRNQty: 90 amoxicillin 500 mg tablet 2,000 mg PO ONCE Qty: 4 0RF Rx Instructions: TAKE 4 TABS WITHIN ONE HOUR OF DENTAL PROCEDURE metoprolol succinate 50 mg tablet extended release 24 hr 50 mg PO HS Qty: 90 5RF Discontinued ibuprofen 200 mg tablet 400 mg PO Q6H PRN Discharge Instructions Additional Instructions: Total Knee Discharge Instructions Activity: The most important activity is to walk and to work on gentle motion (both flexion and extension). You should try to take short walks a few times a day. It is important that when resting you work on keeping the knee straight. Avoid putting a pillow behind the knee as this will encourage flexion. Work on range of motion exercises as provided by Physical Therapy. - Start outpatient physical therapy within 2 weeks. - You should wear the COSTA hose on both legs for 2 weeks. You may remove these at night. You may also use any compression sock in place of the COSTA hose. - Utilize [employer] to review exercises, see videos on exercises and obtain basic information pertaining to your surgery and your recovery. Dressing: Remove the Rayo wrap by 2 days after your surgery and put on the COSTA stocking given to you from the hospital. Keep the surgical dressing (underneath the RAYO wrap) in place for at least one week. After the first week it may be removed and replaced with light gauze and tape or nothing. The wound and dressing may get wet after 3 days but avoid soaking the dressing or otherwise it will need to be changed. Many people prefer covering the dressing with cling wrap (saran wrap) to minimize it from getting soaked. If it gets wet, just pat dry. If it starts to peel off then it will need to be changed. Medications: - You should take Tylenol and anti-inflammatory Naproxen as your primary pain control medications. - You have been prescribed a stronger pain medication Oxycodone for breakthrough pain, take as needed as prescribed. - You have also been prescribed a stomach acid reduction agent Pantoprozole to help reduce stomach acid and reflux. - You have been prescribed Gabapentin to take at night for restlessness and nerve pain. - You will be taking Aspirin 81mg twice a day for DVT prevention unless instructed otherwise. - You have also been prescribed Decadron to take to control post-operative nausea and pain. You will start this tomorrow. - If you have constipation you should take Colace or Miralax (both [id number]). It takes most people 3-4 days to have a bowel movement. Follow-up: 2 weeks If you have any acute concerns or questions, please do not hesitate to contact the office at [phone]. You may contact Dr. Hendrix with any questions after hours through the hospital at [phone] or on his cell phone at [phone]. Referrals: Yung Hendrix MD [ [facility] STAFF PHYSICIAN] - Equipment/Supplies: Walker Activity:: Activity as Tolerated Shower/Bathe:: 72 hours Diet:: As Tolerated Discharge Orders Discharge Orders: Discharge Order (Routine); Ordered 07/09/24 Ordered By: Ghulam Baldwin DS: Diagnosis Discharge Diagnosis (1) Osteoarthritis of right knee: Status: Resolved
[2024-07-09] MEDS: Acetaminophen 500 MG TAB 1000 MG PO (07:42)
[2024-07-09] MEDS: Gabapentin 300 MG CAP PO (07:42)
[2024-07-09] MEDS: Celecoxib 200 MG CAP 400 MG PO (07:42)
--- NOTE | 2024-07-09 07:50 | ANES.PREOP_ITS ---
General Info Date of Service Date Performed: 07/09/24 Height: 5 ft 2 in Weight: 71.5 kg Body Mass Index (BMI): 28.8 Surgical Procedure: Operation Date: 07/09/24 09:25 Proposed Procedure Side Surgeon p Knee Total Arthroplasty w/OrthAlign, Cemented CR Right Yung Hendrix MD Actual Procedure Side Surgeon p Knee Total Arthroplasty w/OrthAlign, Cemented CR Right Yung Hendrix MD Pre-Op Diagnosis Post-Op Diagnosis OSTEOARTHRITIS RIGHT KNEE OSTEOARTHRITIS RIGHT KNEE Meds Allergies and Home Medications Allergies Allergy/AdvReac Type Severity Reaction Status Date / Time sulfamethoxazole Allergy Mild HIVES Verified 07/09/24 07:14 trimethoprim Allergy Mild HIVES Verified 07/09/24 07:14 lisinopril AdvReac Unknown COUGH Verified 07/09/24 07:14 Home Medication ?Medication ?Instructions ?Recorded loratadine 10 mg disintegrating 10 mg PO DAILY PRN #90 tab-caps 02/02/14 tablet cholecalciferol (vitamin D3) 125 5,000 unit PO DAILY 07/02/18 mcg (5,000 unit) capsule ibuprofen 200 mg tablet 400 mg PO Q6H PRN 05/04/20 amoxicillin 500 mg tablet 2,000 mg (4 x 500 mg) PO ONCE #4 04/04/21 tabs fluticasone propionate 50 2 spray NS BID PRN nasal 01/18/23 mcg/actuation nasal congestion #16 grams spray,suspension hydrochlorothiazide 12.5 mg tablet 12.5 mg PO QAM #90 tabs 07/10/23 escitalopram oxalate 10 mg tablet 10 mg PO DAILY #90 tabs 01/14/24 losartan 50 mg tablet 50 mg PO DAILY #90 tabs 01/14/24 metoprolol succinate 50 mg 50 mg PO HS #90 tabs 02/13/24 tablet,extended release 24 hr Current Visit Medications: Current Medications Generic Name Dose Route Start Last Admin Trade Name Freq PRN Reason Stop Dose Admin Acetaminophen 1,000 mg 07/09/24 06:00 07/09/24 07:42 Acetaminophen 500 Mg Tab PO 07/09/24 18:00 1,000 mg PREOP PIPPA Administration Acetaminophen 1,000 mg 07/09/24 07:19 Acetaminophen 500 Mg Tab PO 08/08/24 07:18 TID PRN PRN Analgesia Celecoxib 400 mg 07/09/24 06:00 07/09/24 07:42 Celecoxib 200 Mg Cap PO 07/09/24 18:00 400 mg PREOP PIPPA Administration Docusate Sodium 100 mg 07/09/24 07:19 Docusate Sodium 100 Mg Cap PO 08/08/24 07:18 BID PRN PRN Constipation Gabapentin 300 mg 07/09/24 06:00 07/09/24 07:42 Gabapentin 300 Mg Cap PO 07/09/24 18:00 300 mg PREOP PIPPA Administration Ringer's Solution 1,000 mls @ 80 mls/hr 07/09/24 06:00 IV 08/07/24 23:59 INFUSION PIPPA Cefazolin Sodium/Dextrose 2 gm in 50 mls @ 100 mls/hr 07/09/24 06:00 Ancef Duplex IVPB 07/09/24 18:00 PREOP PIPPA Tranexamic Acid/Sodium Chloride 1,000 mg in 100 mls @ 600 mls/hr 07/09/24 06:00 IVPB 07/09/24 18:00 PREOP PIPPA IV Miscellaneous Supplies 1 each 07/09/24 06:00 Iv Access IV 08/07/24 23:59 DIRECTED PIPPA Oxycodone HCl 0 mg 07/09/24 07:19 Oxycodone 5 Mg Tab PO 08/08/24 07:18 Q3H PRN PRN Pain Polyethylene Glycol 17 gm 07/09/24 07:19 Polyethylene Glycol 3350 17 Gm Packet PO 08/08/24 07:18 BID PRN PRN Constipation Sodium Chloride 0 ml 07/09/24 06:00 Normal Saline Flush 10 Ml Syr IV 08/07/24 23:59 PRN PRN Sodium Chloride 0 ml 07/09/24 06:00 Normal Saline 10 Ml Vial IJ 08/07/24 23:59 DIRECTED PRN Sterile Water 0 ml 07/09/24 06:00 Water,Injection,Sterile 10 Ml Vial IJ 08/07/24 23:59 DIRECTED PRN PFSH Active Problems Active Problems: Problem Status Onset Code Osteoarthritis of right knee Acute M17.11 Right knee pain Acute M25.561 COVID-19 Acute U07.1 Dysfunction of right rotator cuff Acute M67.911 Status post total left knee replacement Acute 10/07/19 Z96.652 Asthma Chronic J45.909 Alcohol intake above recommended sensible limits Acute 08/14/13 Z72.89 Vitamin D deficiency Chronic 07/10/08 E55.9 Polyp of colon Chronic 02/21/11 K63.5 Osteopenia Chronic 09/23/05 M85.80 Hyperlipidemia Chronic E78.5 Hemangioma Chronic 01/07/04 D18.00 Essential hypertension Chronic 08/13/13 I10 Cervical disc disorder with myelopathy Chronic 12/22/01 M50.00 Anxiety Chronic 05/21/14 F41.9 Medical History Medical History Upper respiratory infection (01/12/15) Alcohol intake above recommended sensible limits (08/14/13) 3plus daily Asthma pt. states she does not have asthma Anxiety Essential (primary) hypertension Surgical History Surgical History History of total left knee replacement History of cataract removal with insertion of prosthetic lens (08/11/14) B/L Status post tonsillectomy History of bilateral tubal ligation H/O cataract removal with insertion of prosthetic lens 08/11/14 O.D. Colonoscopy - IV Sedation (05/16/16) Tobacco Smoking/Tobacco Use Status: Former Tobacco Use Passive smoking exposure: No Second hand exposure: No Alcohol Alcohol Intake: current Alcohol intake frequency: 0-2 drinks per day Alcohol type: wine and hard liquor Details: 2-3 glasses of wine nightly Substance Use Substance use type: does not use Vital Signs and Lab Results Vital Signs Most Recent Vital Signs in EMR: Most Recent Vital Signs Temp Pulse Resp BP Pulse Ox 36.7 C 68 18 188/92 H 97 07/09/24 07:36 07/09/24 07:36 07/09/24 07:36 07/09/24 07:36 07/09/24 07:36 Lab Results Blood Type / Crossmatch: No Data to Display Complete Blood Count: No Data to Display Complete Metabolic Panel: Sodium 145 mmol/L (136-145) 06/30/24 16:00 Potassium 3.9 mmol/L (3.5-5.1) 06/30/24 16:00 Chloride 106 mmol/L (98-107) 06/30/24 16:00 Carbon Dioxide 29.7 mmol/L (21.0-32.0) 06/30/24 16:00 BUN 14 mg/dL (7-18) 06/30/24 16:00 Creatinine 0.9 mg/dL (0.55-1.02) 06/30/24 16:00 Est GFR (CKD-EPI 2020) 64.63 (mL/min/1.73m2) 06/30/24 16:00 Calcium 9.6 mg/dL (8.5-10.1) 06/30/24 16:00 Albumin 4.0 g/dL (3.4-5.0) 06/30/24 16:00 Glucose 96 mg/dL (74-106) 06/30/24 16:00 Liver Function Panel: Alanine Aminotransferase (ALT/SGPT) 20 U/L (14-59) 06/30/24 16: 00 Aspartate Amino Transf (AST/SGOT) 16 U/L (15-37) 06/30/24 16:00 Coagulation Panel: No Data to Display Cardiac Panel: No Data to Display Arterial Blood Gas: No Data to Display Venous Blood Gas: No Data to Display Pancreas Panel: No Data to Display Thyroid Panel: No Data to Display Infectious Disease: No Data to Display Blood Cultures: No Data to Display Toxicology Panel: No Data to Display Anesthesia Assessment and Plan Anesthesia History Personal History: No History of Anesthesia Complications Family History: No Family History of Anesthesia Complications Exercise Tolerance Exercise Tolerance: Metabolic Equivalents>4 Pertinent Negatives Pertinent Negatives: No Symptoms of GERD, No Major Cardiovascular Symptoms or Complaints and No Major Pulmonary Symptoms or Complaints Cardiac & Pulmonary Exam Cardiac Exam: Normal S1/S2 Heart Sounds Pulmonary Exam: Clear Bilateral Breath Sounds Implantable Cardiac Device Does patient have a Pacemaker or an ICD?: No Airway Exam Known Difficult Airway: No Mallampati Class: 1 Mouth Opening: Normal (> 3cm) Thyromental Distance: Greater than 3 cm Neck Range of Motion: Full ROM Neck Circumference: Normal Teeth Condition: Normal Dentition ASA Classification ASA Score: ASA 2 Emergency Case?: No NPO Status NPO Status: NPO Clears >2 hours, Solids >8 hours Anesthesia Plan Resuscitation Status: Full Code Anesthesia Technique: General Anesthesia Airway Planned: Endotracheal Tube Pain Management: Surgeon and patient request nerve block Monitors Used: Standard Monitors and SedLine Preoperative Comments:: Discussed history of cavernous malformation at T1 with Dr. Hendrix and with patient who reports no neurological changes/symptoms. Asked to follow up with neurosurgery as necessary.
[2024-07-09] MEDS: Lactated Ringers 1,000 ML 80 ML IV (07:54)
[2024-07-09] MEDS: ceFAZolin 2 GM/50 ML BAG IVPB (08:43)
--- NOTE | 2024-07-09 08:47 | W.PM.OP ---
Date of service: 07/09/24 Time of Service: 08:50 Operative Note Operative Note DATE OF PROCEDURE: 07/09/24 PRE-OP DIAGNOSIS: Right Knee Arthritis with Valgus Deformity POST-OP DIAGNOSIS: same PROCEDURE: Right Total Knee Arthroplasty with Intraoperative Navigation SURGEON: Yung Hendrix BALLAST INSPECTOR: Jose Baldwin ANESTHESIA TYPE: General LMA/ETT Refer to Anesthesia Record ESTIMATED BLOOD LOSS: 300 PATHOLOGY: none sent TOURNIQUET TIME: 30 COMPLICATIONS: None Patient was transported to: PACU Patient's condition: stable Implants: 1. Depuy Attune Cruciate Retaining Femoral Component, Size 5 2. Depuy Attune Fixed Bearing Tibial Component, Size 4 3. Depuy Attune 5x5 CR, FB Poly 4. Depuy Attune Patellar Component, Size 35 Indications: I have seen Megan in clinic for symptoms of knee arthritis, confirmed with radiographic findings. She has exhausted nonoperative methods and was having significant limitations in daily function and desired better function and less pain. I discussed the technical details of a knee replacement. I explained the risks of the procedure to include, but not limited to, bleeding, infection, pain, stiffness, fracture, damage to nerves and vessels, damage to muscles and tendons, loosening, need for repeat procedure, blood clot and cardiopulmonary demise. Despite these risks, Megan elected to proceed. Findings: There was significant signs of arthritis throughout the knee. Procedure Description: Megan was greeted in the preoperative holding area where the correct side was identified and marked. The consent was reviewed with the patient and signed. The history and physical was updated. All questions were answered. Preoperative mediacations were administered: Acetaminophen 1000mg, Celebrex 400mg, Gabapentin 300mg, and Oxycontin 10mg. An adductor canal block was then administered by the anesthesia team in the PACU. Megan was taken back to the operating room. A general anesthestic was then administered. The patient was placed into the supine position on the operating room table. A nonsterile tourniquet was placed high onto the leg but only used for cementing. Posts were placed for positioning during the procedure. All bony prominences were well padded. Prophylactic antibiotics in the form of Cefazolin were administered. 1g of Tranxemic Acid was given intravenously within 30 minutes of incision. The right leg was then prepped with Chloraprep and draped in a standard fashion with impervious stockinette and extremity drape with Iodine impregnated skin protection. A timeout to confirm correct identity, side and site, procedure, allergies, anesthesia, and medical concerns was performed. With the knee in some flexion, a midline incision was made overlying the knee. Full thickness skin flaps were raised once the extensor mechanism was encountered. These were raised medially and laterally. Any bleeding was controlled with electrocautery. Once the extensor mechanism was fully exposed, a medial parapatellar arthrotomy was performed in a flexed position. All bleeding from the arthrotomy and the geniculate arteries was coagulated. A medial subperiosteal peel was performed with electrocautery to the midcoronal plane. The fat pad was removed while keeping the patellar tendon protected. The anterior distal femur synovium was removed for later visualization. The ACL and PCL were resected and the anterior horn of the lateral meniscus was transected. The knee was then flexed with the patella everted. Large osteophytes from the tibia were removed. Large osteophytes from the femur were removed. A single starting pin was then placed 1cm anterior to the PCL insertion and the notch in the direction of the femoral head. The OrthoAlign device was applied over the pin. It was oriented to be in line with the epicondylar axis and the trochlear groove. It was then pinned into place. The navigation computer was then turned on and calibrated. The distal femur cut was set at 0 degrees varus/valgus and 3 degrees flexion. The distal femur cutting guide then was positioned for a 9mm cut. The distal femur was cut with an oscillating saw while protecting the soft tissues. The tibia was then addressed. The OrthoAlign device was placed over the tibial tubercle and medial tibia and secured into position. Once again, OrthoAlign was calibrated and then set for a 1 degree varus cut and 5 degrees of posterior slope. With this locked into position, the cut thickness stylus was used to assess cut thickness. The lateral side, most involved side, was set for a 4mm cut, corresponding to 6mm medially. This was then held in position and pinned into place with 2 additional pins and a cross pin for stability. The medial and lateral collateral ligaments were protected and the cut was performed. With this completed, it was assessed and noted to be of appropriate dimensions. The guide and OrthoAlign was removed. A spacer block was inserted and the knee was brought into extension. The 5mm spacer block provided full extension, without hyperextension and with stability of both the medial and lateral collateral ligaments was assessed. The pins from the femur and the tibia were then removed. The OrthoAlign balancing device was then placed. This started in extension with gap was measured and noted to be symmetrical within 2 mm of each side. The knee was involved in a 90 degrees were once again the gap was assessed and noted to be balance. The posterior cut was then set on the jig for a cut of 6mm and the Attune specific cutting block was placed, through which pins were placed into the femur. The distal femur was then sized. The anterior stylus was placed onto the lateral ridge of the anterior femur. This indicated a size 5 femur. The 4-in-1 cutting guide was the placed. The posterior medial femur cut was evaluated and appeared of good thickness. The spacer block was inserted underneath the cutting guide and stability was confirmed in 90 degrees of flexion. An jl wing was used to confirm appropriate position of the anterior cut to avoid notching. This cutting guide was ensured to be flush on the cut surface and then pinned into place with headed pins. While protecting the soft tissues, quad tendon, and collateral ligaments, the anterior and posterior cuts were performed with a saw. The central two pins were removed and the posterior and anterior chamfers were cut next. The notch-cutting guide was placed. This was pinned to lateralize the femoral component as much as possible while keeping it flush on the cut surface. This was then pinned into position. A reciprocating saw was used to make the notch cut. A rasp smoothed the cut surfaces. A trial posterior stabilized femoral component was then inserted, impacted down to the cut surfaces, and the lug holes were drilled. A provisional trial tibial component was placed and the knee was brought through range of motion. There was noted to be excellent extension and flexion. There was no significant instability. The patella was tracking without thumbs. The tibial cut surface was fully exposed. The medial and lateral menisci were removed. The tibia was then sized as a 4. The tibia had been previously marked during trialing to correspond to the center of the tibial component to help with rotation. The trial was aligned to this jose, approximately rotated to the medial 1/3rd of the tibial tubercle. The trial was pinned into place. The tibia was prepared with a reamer and a keel punch. The knee was then brought into extension and the patella was measured as 24mm. Using the patellar clamp and cut guide, this was resected to a flat surface with at least 13mm of thickness remaining. The size 35 patella fit the best. This was oriented and then clamped into position. The lugs were drilled. The trial components were removed. The final components, except for the polyethylene were opened on the back table. The periosteal and capsular tissues, especially posteriorly, around the knee were then systematically injected with a periarticular cocktail consisting of 246mg of Ropivacaine, 0.5mg of Epinephrine, 0.08mg of Clonidine, and 30mg of Ketorolac, diluted to 100cc. The tourniquet was then inflated to 300mmHg. The knee was thoroughly irrigated with a pulse lavage and dried. On the back table, with the implants opened, the cement was mixed. 2 batches of medium viscosity cement were prepared with vacuum assistance. After the cement was ready a small amount was placed on to the back side of the tibial component at the keel. A small amount was placed onto the posterior flange of the femur. Cement was manual pressurized and impregnated into the cut surface of the tibia. The tibial component was then inserted into the cut surface and impacted into position. Excess cement was removed and the component was reimpacted. Again, excess cement was removed and our attention was then turned to the femur. The femoral cut surface was once again dried and cement was manually impacted into the cut surface. The femoral component was lined with the lug holes and impacted. Excess cement was removed. It was ensured to be down against the cut surface. The trial polyethylene was then inserted and the leg was brought out into full extension for the duration of the cement curing process, approximately 15min. Cement was lastly manually impacted into the cut surface of the patella and the patellar button was clamped into position and held. During this process attention was turned to the gutters of the knee and for all interfaces for any excess cement. The knee was then thoroughly irrigated with Surgiphor Betadine solution. It was allowed to sit in the knee for 3 minutes before being irrigated out with saline. After the cement had finally cured, approximately 18min, the clamp was removed from the patella and the knee was taken through range of motion. A size 5mm polyethylene component provided the best range of motion and stability with less than 2mm gapping with medial and lateral stress and full extension without significant hyperextension. The patella was tracking with a no-thumbs technique. The trial poly was removed and once again the knee was checked for any loose, excess, or errant cement. The poly component was then inserted into position after cleaning and drying the tibial tray. The capsule was then reapproximated with a No. 1 Vicryl at multiple locations. The capsule was finally closed with a No. 2 Stratafix, barbed suture. The tourniquet was then released and the arthrotomy appeared watertight without significant bleeding. The second dosing of 1g TXA was started. Deep tissues were then reapproximated with 0 Vicryl and 2-0 Vicryl. The skin was closed with a running 3-0 Monocryl in a subcuticular fashion. This was reinforced with skin glue. A Mepilex silver dressing was applied along with a [id number] CARMEN wrap. A CryoCuff was applied. Megan was transferred to the hospital bed without difficulty an suffering no apparent complication. Megan has a good prognosis. Physical therapy will start today and without restrictions, weight-bearing as tolerated. Aspirin 81mg BID will be used for DVT prophylaxis.
[2024-07-09] MEDS: TRANEXAMIC ACID/SOD. CHL. 1,000 MG/100 ML BAG 600 MG IVPB (08:51)
--- NOTE | 2024-07-09 09:27 | ANES.NERVE_ITS ---
Nerve Block Single Injection Procedure Date and Time Date Performed: 07/09/24 Procedure Start: 08:25 Location Where Procedure Performed Procedure Location: Day Surgery Unit Reason Performed: Postoperative Analgesia Requesting Provider: Yung Hendrix Timeout Performed Timeout Performed: Yes Monitoring Used ECG, Blood Pressure, SpO2 and See EMR for corresponding vital signs Sterility Sterility: Hand Hygiene, Surgical Cap, Surgical Mask, Sterile Gloves and Chlorhexidine Sedation Given During Procedure Sedation Given (Indicate Dose Given): No Sedation given Patient Mental Status Patient Mental Status: Awake Nerve Block 1st Nerve Block: Laterality: Right Block Type: Adductor Canal Ultrasound Image Saved?: Yes Needle / Catheter Used: 80mm SonoPlex II Local Anesthetic Bolus (Indicate Dose Given): Lidocaine used for local infiltration of skin, Injected in 3-5ml increments after negative blood aspiration, Bupivacaine 0.25% Dose:: 10mL and Exparel Dose:: 10mL Additives (Indicate Dose Given): None Ultrasound: Sterile probe cover and gel used Nerve Stimulator: Supplement to Ultrasound use and No twitch or parasthesia noted < 0.5 mA Paresthesia: None Procedure Tolerated: No Complications Procedure Outcome: Successful Procedure Comment: Karyna Cason RN administered LA and patient's daughter was present in DSU room for block placement. Patient tolerated the procedure well. During consent discussed alternatives to include LA by surgeon or other medications, but patient prev iously had regional block for left sided TKA and wishes to proceed with block. Patient tolerated procedure well, no sedation. Performed By: Fabi Urbano
--- NOTE | 2024-07-09 12:22 | W.ANESPOSTOP ---
Postoperative Evaluation Date, Time and Location Date Performed: 07/09/24 Time Performed: 12:22 Patient Location: Day Surgery Unit Vital Signs Most Recent Imported Vital Signs: Most Recent Vital Signs Temp Pulse Resp BP Pulse Ox 35.6 C L 62 18 141/73 H 97 07/09/24 11:41 07/09/24 11:41 07/09/24 11:41 07/09/24 11:41 07/09/24 11:41 Pain Score Most Recent Pain Score: Most Recent Pain Score Pain Level 0 07/09/24 11:41 Assessment Mental Status: Awake (Alert & Oriented to Patient Baseline) Airway and Respiratory Function: Patent airway with normal (patient baseline) respiratory exam Cardiovascular Function: Hemodynamically Stable Hydration Status: Adequately Hydrated Nausea & Vomiting: No Nausea or Vomiting Pain: Pt. Denies Any Pain Peripheral Nerve Block: Regional nerve block not resolved at time of post operative discharge Postoperative Comments:: Sitting in stretcher with daughter at bedside. Comfortable and eating lunch, no further questions.
--- NOTE | 2024-07-09 12:59 | PT.INIE ---
PT Notes Visit Reasons: R TKR Physical Therapy Day Surgery Initial Evaluation Date: 07/09/2024 Referring Doctor: KAIA Li PT Orders: PT CONSULT: S/P Ortho Surgery Precautions: WBAT on the right LE with AD. Patient Profile/Admitting Diagnosis: Megan is an 78-year-old female with degenerative joint disease of the right knee and is status post right total knee arthroplasty on postoperative day 0. PMHX: Medical History Upper respiratory infection (01/12/15) Alcohol intake above recommended sensible limits (08/14/13) 3plus daily Asthma pt. states she does not have asthma Anxiety Essential (primary) hypertension Surgical History History of cataract removal with insertion of prosthetic lens (08/11/14) B/L Status post tonsillectomy History of bilateral tubal ligation H/O cataract removal with insertion of prosthetic lens 08/11/14 O.D.Colonoscopy - IV Sedation (05/16/16) Social History/Home Situation: Lives with in a private home with 4 steps to enter without rails but patient will have support from daughter and as she gets into the house. Daughter will stay for about a week as she recovers. Equipment Owned/DME: [facility] Subjective: Reported ache in the R knee that did not limit today's mobility performance. Denied headache, chest pain, and lightheadedness throughout session. Objective: General Observation: CARMEN wraps to right LE. Cryocuff to right knee. TEDS to L leg/foot. Mental Status: A and O x 4 Pain: 2-3/10 in the R knee at rest and with movement ROM: Right Lower Extremity: Hip flexion WFL. Hip abduction WFL. Knee flexion 10 degrees to 100 degress. Knee extension -10 degrees. Ankle dorsiflexion WFL. Ankle plantarflexion WFL. Left Lower Extremity: Hip flexion WFL. Hip abduction WFL. Knee flexion WFL. Ankle dorsiflexion WFL. Ankle plantarflexion WFL. Strength: Right Lower Extremity: Hip flexors 4/5. Hip abductors 4/5. Knee flexors 3-/5. Knee extensors 3-/5. Ankle dorsiflexors 5/5. Ankle plantarflexors 5/5. Left Lower Extremity:Hip flexors 5/5. Hip abductors 5/5. Knee flexors 5/5. Knee extensors 5/5. Ankle dorsiflexors 5/5. Ankle plantarflexors 5/5. Sensation: Intact as to pain and light pressure in B LE Bed Mobility/Transfers: Minimal cueing provided for use of B hands as needed for support, movement sequence, AD management, and posture to reduce fall risk and minimize pain report Sit to stand contact-guard assist with FWW Stand to sit standby assist with FWW Bed to chair standby assist with FWW Gait: Facilitate safe and correct performance of level surface ambulation covering a distance of 150 feet using front wheel walker with step to gait pattern requiring standby assist and minimal verbal cueing for AD management, correct limb sequence, and posture to minimize pain report and reduce fall risk. Stairs: Guided patient with safe and correct negotiation of 2 x 6 inch steps and 3 x 4 inch steps while holding onto bilateral rails with step to gait pattern requiring minimal verbal cueing for limb movement sequence, hand placement, and increased flexion on the right knee with each ascent. Contact-guard assist provided Balance: Static Sitting: Normal Dynamic Sitting: Normal Static Standing: Fair Dynamic Standing: Fair Special Tests: Mobility Limitations Standardized Measure [facility] 6 clicks Basic Mobility Inpatient Short Form: Raw Score: 23 CMS Score: 11% deficit Informed Consent/Education: Patient instructed in purpose of PT consult. Packet containing TKA exercise protocol has been given to patient. Education and training on initial set of exercises that can be done at home have been completed with patient. Trained patient with correct performance of exercises below to maximize motor control, joint flexibility, soft tissue extensibility of the R knee musculature: Access Code: [email or web address] URL: [email or web address] Date: 07/09/2024 Prepared by: Gill Manley Exercises - Supine Quad Set - 1 x daily - 7 x weekly - 1 sets - 10 reps - 5 hold - Supine Heel Slide - 1 x daily - 7 x weekly - 1 sets - 10 reps - 5 hold - Supine Ankle Pumps - 1 x daily - 7 x weekly - 1 sets - 10 reps - 5 hold - Small Range Straight Leg Raise - 1 x daily - 7 x weekly - 1 sets - 10 reps - 5 hold - Seated March - 1 x daily - 7 x weekly - 1 sets - 10 reps - 5 hold Assessment: Patient with patient requires use of a front wheeled walker for mobility ADL performance to maximize independence and reduce fall risk. Patient presents with clinical signs and symptoms consistent with current/admitting diagnoses that have resulted to mobility limitations, gait instability, generalized weakness, and impairment of motor control as demonstrated by the following impairment level findings: 1. Decreased strength to R knee major muscle groups 2. Impaired standing balance 3. Limitation of joint range of motion in R knee Impairments are contributing to the following functional limitations: 1. Inability to safely ambulate without assistive device 2. Increase completion time for mobility ADL performance 3. Increased fall risk Patient is assessed as a 44543 moderate complexity based on the following: History: 78-year-old female with impairment level findings, functional limitations, and past medical history as indicated above Examination: Demonstrable impairment in strength, balance, and mobility level with underlying impairments and functional limitations as documented above Presentation: Evolving Decision Makin moderate complexity Goals: N/A. PT evaluation and 1-2 treatment sessions only for functional mobility training using recommended AD and for HEP instruction. Plan of Care/Treatment Plan: N/A. PT evaluation and 1-2 treatment session only for functional mobility training using recommended AD and for HEP instruction. DISCHARGE RECOMMENDATIONS: Home when medically cleared by orthopedic surgeon. Recommend outpatient PT services in order to optimize functional mobility outcomes and facilitate return to independent community ambulation without an assistive device. TREATMENT CODE/TIME: 04069 x 28 minutes for 1 unit (12:59?13:27). Thank you for the opportunity to participate in the care of this patient. Please sign an return this page within 30 days if you agree with the above POC. Thank you! Physician Signature Date [facility] Gill Manley PT, DPT, CLT [facility] [place], [place]
== END 2024-07-09 13:58 | disposition home or self-care (01) ==
PROVIDERS: PCP Family Medicine; Visit Provider Student in an Organized Health Care Education/Training Program
PROC: (CPT 27447; principal; 2024-07-09 09:15)
DX: M17.11 Unilateral primary osteoarthritis, right knee (principal); M21.061 Valgus deformity, not elsewhere classified, right knee; J45.909 Unspecified asthma, uncomplicated; E55.9 Vitamin D deficiency, unspecified; I10 Essential (primary) hypertension; E78.5 Hyperlipidemia, unspecified; G89.18 Other acute postprocedural pain
CPT/HCPCS: 20985; 27447; 64447; 76942; 97162; C1776; C9290; J0665; J0690; J1100; J2003; J2405; J2704

== ENCOUNTER 2024-07-24 14:56 | Outpatient (CLI) | payer MEDICARE, SELFPAY ==
--- NOTE | 2024-07-24 13:15 | DI.RAD_ITS ---
Exam(s) XR KNEE RT 1V XR STANDING ALIGNMENT EXAM: XR STANDING ALIGNMENT CLINICAL HISTORY: 1ST POST OP S/P R TKA. TECHNIQUE: 2D digital imaging was performed. Standing AP views were performed from the pelvis throu gh the ankles. COMPARISON: CR XR KNEE RT 3V AP,LAT,MELANIA from 05/19/2024 CR XR STANDING ALIGNMENT from 06/30/2024 CR XR KNEE RT 1V from 07/24/2024 FINDINGS: BONES: No acute fracture is present. No bony destructive lesion is seen. Leg length discrepancy: Approximate 15 millimeter overall leg length discrepancy at the level of the femoral heads.. JOINTS: Knees: Stable appearance of left knee prosthesis. A right knee prosthesis has been placed in the interval which shows satisfactory alignment. The ankle joints are unremarkable. The hip joints are unremarkable. SOFT TISSUE: Venous varicosities in the medial right lower leg as well as right lower leg edema. IMPRESSION: Bilateral knee prostheses. 15 millimeter overall leg length discrepancy. DATA REPOSITORY: RADIATION DOSE DELIVERED:
== END 2024-07-24 14:57 | disposition home or self-care (01) ==
LOC: DIORS 14:56
PROVIDERS: PCP Family Medicine; Referring Provider Family Medicine; Visit Provider Student in an Organized Health Care Education/Training Program
DX: Z96.651 Presence of right artificial knee joint (principal); Z47.1 Aftercare following joint replacement surgery
CPT/HCPCS: 99024; 73560; 77073

== ENCOUNTER → 2024-08-28 14:21 | Outpatient (BNVA) | payer MEDICARE, SELFPAY | PROVIDERS: PCP Family Medicine; Referring Provider Family Medicine; Visit Provider Student in an Organized Health Care Education/Training Program | DX: Z47.1 Aftercare following joint replacement surgery (principal); Z96.651 Presence of right artificial knee joint | CPT/HCPCS: 99024 ==

== ENCOUNTER → 2024-10-09 12:54 | Outpatient (BNVA) | payer MEDICARE, SELFPAY | PROVIDERS: PCP Family Medicine; Referring Provider Family Medicine; Visit Provider Student in an Organized Health Care Education/Training Program | DX: Z47.1 Aftercare following joint replacement surgery (principal); Z96.651 Presence of right artificial knee joint | CPT/HCPCS: 99024 ==

== ENCOUNTER 2024-12-23 01:25 | Outpatient (CLI) | payer MEDICARE, SELFPAY ==
--- NOTE | 2024-12-23 06:53 | DI.MRI_ITS ---
Exam(s) MR CERVICAL SPINE WO/W EXAM: MR CERVICAL SPINE WO/W CLINICAL HISTORY: growing hemangioma,d18.00 TECHNIQUE: Multiplanar multisequence MRI of the cervical spine was performed. CONTRAST MATERIAL: IV Contrast: 14 ML of Dotarem contrast administered. COMPARISON: MR MRI - CERVICAL SPINE WO CONT from 06/12/2014 FINDINGS: BONES: Vertebral body heights are maintained. Intervertebral disc spaces are normal. Alignment is nor mal. Bone marrow signal intensity is within normal limits. CERVICAL CORD: Craniovertebral junction is unremarkable. There is again seen an expansile lesion with in the spinal cord extending from the C7 through the T2 level of the cord. The entire area measures approximately 3 cm in length. This is show no significant change compared to the prior examination. There is a focus of T2 hyperintensity within the lesion posterior to the T1. The AP diameter in the area of expansion of the cord is 6.5 mm compared to 9.5 mm on the prior examination. No other lesio n is present. SOFT TISSUES: Unremarkable. ENHANCEMENT: The cervical cord lesion shows no significant enhancement. C2-3: No disc herniation or bulge is identified. No significant central spinal canal or neural forami nal stenosis. C3-4: Mild prominence of the osteophyte disc complex. No significant central spinal canal stenosis or left neural foraminal stenosis. There is mild prominence of the right uncovertebral joint causing mi ld right neural foraminal narrowing. C4-5: There is mild prominence of the osteophyte disc complex. No significant central spinal canal or neural foraminal stenosis C5-6: There is mild prominence of the osteophyte disc complex. No significant central spinal canal or neural foraminal stenosis C6-7: No disc herniation or bulge is identified. No significant central spinal canal or neural forami nal stenosis C7-T1: No disc herniation or bulge is identified. No significant central spinal canal or neural sabina inal stenosis IMPRESSION: 1. 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 There has been slight decrease in the degree of expansion of the spinal cord compared to the prior examination. 2. Multilevel degenerative changes in the cervical spine. Mild right neural foraminal narrowing is no constantin at C3-C4. DATA REPOSITORY:
[2024-12-23] MEDS: Gadoterate meglumine 20 ML VIAL 14 ML IVP (12:32)
[2024-12-23] MEDS: Normal Saline Flush 10 ML SYR IJ (12:33)
== END 2024-12-23 01:45 ==
LOC: DI 01:25
PROVIDERS: PCP Family Medicine; Visit Provider Family Medicine
DX: D18.00 Hemangioma unspecified site (principal); M50.021 Cervical disc disorder at C4-C5 level with myelopathy; M99.61 Osseous and subluxation stenosis of intervertebral foramina of cervical region
CPT/HCPCS: 72156

== ENCOUNTER 2025-07-16 16:00 | Outpatient (CLI) | payer MEDICARE, SELFPAY ==
--- NOTE | 2025-07-16 12:00 | DI.RAD_ITS ---
Exam(s) XR KNEE RT 2V AP,LAT EXAM: XR KNEE RT 2V AP,LAT CLINICAL HISTORY: ANNUAL F/U R TKA. TECHNIQUE: 2D digital imaging was performed. Two images were obtained. AP and lateral views were obtained. COMPARISON: CR XR KNEE RT 3V AP,LAT,MELANIA from 05/19/2024 CR XR STANDING ALIGNMENT from 07/24/2024 CR XR KNEE RT 1V from 07/24/2024 FINDINGS: BONES: There are stable post operative changes of a right total knee arthroplasty present. No fracture or dislocation. JOINTS: The orthopedic hardware is in good position. No evidence of hardware loosening. SOFT TISSUE: Normal. IMPRESSION: Stable right total knee arthroplasty. DATA REPOSITORY: RADIATION DOSE DELIVERED:
== END 2025-07-16 16:01 | disposition home or self-care (01) ==
LOC: DIORS 16:00
PROVIDERS: PCP Family Medicine; Visit Provider Physician Assistant
DX: Z47.1 Aftercare following joint replacement surgery (principal); Z96.651 Presence of right artificial knee joint
CPT/HCPCS: 99213; 73560

== ENCOUNTER 2025-08-25 11:15 | Outpatient (CLI) | payer MEDICARE, SELFPAY ==
[2025-08-25 16:35] LABS: ALT 17 U/L (10-49); AST 21 U/L (<34); Albumin 4.4 g/dL (3.2-5.0); Alkaline Phosphatase 59 U/L (46-116); Anion Gap 8.8 mmol/L (3-11); BUN 18 mg/dL (9-23); Bilirubin, Total 0.80 mg/dL (0.2-1.2); CO2 30.2 mmol/L (20.0-31.0); Calcium 9.1 mg/dL (8.3-10.6); Chloride 104 mmol/L (98-107); Glucose 82 mg/dL (74-106); Potassium 3.4 mmol/L (3.5-5.1); Sodium 143 mmol/L (136-145); Total Protein 7.1 g/dL (5.7-8.2)
== END 2025-08-25 11:16 | disposition home or self-care (01) ==
LOC: LOS 11:16
PROVIDERS: PCP Family Medicine; Visit Provider Family Medicine
DX: I10 Essential (primary) hypertension (principal)
CPT/HCPCS: 36415; 80053

== ENCOUNTER → 2025-09-09 00:20 | Outpatient (CLI) | payer MEDICARE, SELFPAY ==
--- NOTE | 2025-09-09 | DI.RAD_ITS ---
Exam(s) XR LUMBAR SPINE COMPLETE EXAM: XR LUMBAR SPINE COMPLETE CLINICAL HISTORY: LOW BACK AND RT HIP PAIN,M54.50. TECHNIQUE: 2D digital imaging was performed. Five views. COMPARISON: No exams were available for comparison FINDINGS: BONES: No fracture or destructive lesion. Vertebral body heights are maintained. Set degenerative changes are present throughout could rate, greatest at L4-5 and L5-S1. DISKS: Severe narrowing of the disc spaces from T11-12 through L4-5. Endplate osteophytes throughout, greater on the right side. ALIGNMENT: Mild degenerative spondylolisthesis at L L4-5 and L5-S1. Moderate levoscoliosis. SOFT TISSUE: Normal. IMPRESSION: Severe degenerative changes and scoliosis. DATA REPOSITORY: RADIATION DOSE DELIVERED:
--- NOTE | 2025-09-09 | DI.RAD_ITS ---
Exam(s) XR HIP RT COMPLETE AP PELVIS EXAM: XR HIP RT COMPLETE AP PELVIS CLINICAL HISTORY: LOW BACK AND RT HIP PAIN,M25.551. TECHNIQUE: 2D digital imaging was performed. Two views COMPARISON: No exams were available for comparison FINDINGS: BONES: No acute fracture is present. No bony destructive lesion is seen. JOINTS: No dislocation present. Hip joint spaces are maintained. SI joints and pubic symphysis are unremarkable. SOFT TISSUE: Normal. IMPRESSION: No acute abnormality. DATA REPOSITORY: RADIATION DOSE DELIVERED:
== END ==
PROVIDERS: PCP Family Medicine; Visit Provider Family Medicine
DX: M54.50 Low back pain, unspecified (principal); M25.551 Pain in right hip
CPT/HCPCS: 72110; 73502